=== PATIENT | female | born 1930 | race Caucasian/White ===

== ENCOUNTER 2018-02-17 09:44 | Emergency (ER) | payer MEDICARE, BC ==
[~2018-02-17] VITALS: Ht 170.2 cm; Wt 81.7 kg
[~2018-02-17 09:44] MED LIST: ACET325 PO; ALPR.25 PO; ASPI81CH PO; ATOR40TA PO; Amiodarone HCl200 MG PO; CHOL10002 PO; CIPR500 PO; DIGO.25; DIGO.25 PO; DULO30 PO; ESOM20 PO; ESOMEPRAZOLE MA40 MG PO; FEVER FEW; FURO40 PO; GLIM2 PO; GLIM4 PO; HYDR1TAB94; HYOS0.375T PO; K-Dur10 MEQ; LEVSOD100; LEVSOD100 PO; LISI20 PO; MELO7.5; METO50ER; METO50ER PO; METOPROLOL TART75 MG PO; NABU500 PO; NAPR500 PO; NEBI5 PO; OXYACE5T PO; PANT40; PANT40 PO; PREG100 PO; PROM25 PO; TRAZ150T57 PO; TRAZ50; TRIHYD253A PO
[2018-02-17 10:14] LABS: BASOPHILS ABSOLUTE AUTO 0.02 K/mm3 (0.00-0.23); BASOPHILS PERCENT AUTO 0 % (0-2); EOSINOPHILS ABSOLUTE AUTO 0.11 K/mm3 (0.00-0.68); EOSINOPHILS PERCENT AUTO 1 % (0-6); Hematocrit 34.8 % (33.0-51.0); Hemoglobin 11.2 g/dL (11.5-16.0); IMMATURE GRAN ABSOLUTE AUTO 0.03 K/mm3 (0.00-0.10); IMMATURE GRAN PERCENT AUTO 0 % (0-1); LYMPHOCYTES ABSOLUTE AUTO 2.01 K/mm3 (0.84-5.20); LYMPHOCYTES PERCENT AUTO 19 % (21-46); MONOCYTES ABSOLUTE AUTO 0.73 K/mm3 (0.16-1.47); MONOCYTES PERCENT AUTO 7 % (4-13); Mean Corpuscular HGB 31.3 pg (26.0-34.0); Mean Corpuscular HGB Conc 32.2 g/dL (31.5-36.5); Mean Corpuscular Volume 97 fL (80-100); Mean Platelet Volume 10.1 fL (9.1-12.4); NEUTROPHILS ABSOLUTE AUTO 7.49 K/mm3 (1.96-9.15); NEUTROPHILS PERCENT AUTO 72 % (41-73); Platelet Count 244 K/mm3 (150-400); RDW Coefficient Variation 15.3 % (11.7-14.2); RDW Standard Deviation 54.6 fL (35.1-46.3); Red Blood Cell Count 3.58 M/mm3 (3.80-5.20); White Blood Cell Count 10.39 K/mm3 (4.00-11.30)
[2018-02-17 10:28] LABS: Alanine Aminotransfer (ALT/SGP 14 U/L (12-78); Albumin/Globulin Ratio 0.7 (0.8-1.8); Alk Phos 66 U/L (50-136); Anion Gap 7 mmol/L (6-16); Aspartate Aminotrans (AST/SGOT 13 U/L (12-37); Bilirubin, Total 0.7 mg/dL (0.1-1.0); Blood Urea Nitrogen 13 mg/dL (8-24); CO2, Blood 26 mmol/L (21-32); Calcium, Blood 8.7 mg/dL (8.5-10.1); Chloride, Blood 105 mmol/L (98-108); Creatinine, Blood 1.18 mg/dL (0.40-1.00); Globulin, Blood 4.4 g/dL (2.2-4.0); Glomerular Filtration Rate 46 (60-); Glucose, Blood 180 mg/dL (70-99); Potassium, Blood 4.2 mmol/L (3.5-5.5); Sodium, Blood 138 mmol/L (136-145); Total Protein, Blood 7.4 g/dL (6.4-8.2); Troponin I <0.015 ng/mL (0.000-0.040)
[2018-02-17] MEDS ORDERED: ALPR.25 PO (10:33)
[2018-02-17] MEDS ORDERED: Percocet 2.5-31 EACH PO (10:33)
[2018-02-17 11:37] LABS: Source, Urine Catheter
[2018-02-17 11:40] LABS: Bilirubin, Urine Neg (Neg); Blood, Urine Neg (Neg); Glucose Qualitative, Urine Neg (Neg); Ketones, Urine Neg (Neg); Leukocyte Esterase, Urine 1+ (Neg); Nitrite, Urine Neg (Neg); Protein, Urine Neg (Neg); Specific Gravity, Urine 1.005 (1.003-1.022); Urobilinogen, Urine NORM (Normal)
[2018-02-17 11:51] LABS: Appearance, Urine Clear (Clear); Bacteria Not Seen /hpf; Color, Urine Yellow (P-Yellow); Red Blood Cells, Urine Not Seen /hpf (0-2); Squamous Epithelial Cells Few /hpf (Few); White Blood Cells, Urine 0-2 /hpf (0-5)
[2018-02-17] MEDS ORDERED: Percocet 5-3251 EACH PO (12:04)
[2018-06-16] MEDS ORDERED: ACET325 PO (11:31)
[2018-06-16] MEDS ORDERED: GLIM2 PO (11:32)
[2018-06-16] MEDS ORDERED: Desyrel50 MG PO (12:47)
[2018-06-16] MEDS ORDERED: OXYC5 PO (12:49)
[2018-06-16] MEDS ORDERED: VITAMIN D31000 UNIT PO (12:51)
[2018-06-16] MEDS ORDERED: Coq-10100 MG PO (12:52)
[2018-06-16] MEDS ORDERED: CYAN500 PO (12:52)
[2018-06-18] MEDS ORDERED: PANT40 PO (18:33)
[2018-06-18] MEDS ORDERED: TRAZ150T57 PO (18:34)
[2018-09-20] MEDS ORDERED: Dyazide 37.5-21 EACH PO (16:05)
[2018-09-20] MEDS ORDERED: Voltaren100 GM TOP (16:35)
== END 2018-02-17 12:38 | disposition home or self-care (01) ==
LOC: ER 09:44
PROVIDERS: Emergency Medicine
DX: R55 Syncope and collapse (principal); M19.90 Unspecified osteoarthritis, unspecified site; I48.91 Unspecified atrial fibrillation; I10 Essential (primary) hypertension; E11.9 Type 2 diabetes mellitus without complications; G47.33 Obstructive sleep apnea (adult) (pediatric); F32.9 Major depressive disorder, single episode, unspecified; E78.5 Hyperlipidemia, unspecified; Z87.01 Personal history of pneumonia (recurrent)
CPT/HCPCS: 36415; 71045; 73130; 73630; 80053; 81001; 84484; 85025; 87086; 93005; 93010; 96374; 96375; 99284; J1885; J3010; P9612

== ENCOUNTER 2018-05-02 07:48 | Emergency (ER) | payer MEDICARE, BC ==
[~2018-05-02] VITALS: Ht 167.6 cm; Wt 90.7 kg
[~2018-05-02 07:48] MED LIST changes: +Percocet 2.5-31 EACH PO; +Percocet 5-3251 EACH PO
[2018-05-02 08:38] LABS: BASOPHILS ABSOLUTE AUTO 0.02 K/mm3 (0.00-0.23); BASOPHILS PERCENT AUTO 0 % (0-2); EOSINOPHILS ABSOLUTE AUTO 0.29 K/mm3 (0.00-0.68); EOSINOPHILS PERCENT AUTO 4 % (0-6); Hematocrit 33.5 % (33.0-51.0); IMMATURE GRAN ABSOLUTE AUTO 0.01 K/mm3 (0.00-0.10); IMMATURE GRAN PERCENT AUTO 0 % (0-1); LYMPHOCYTES ABSOLUTE AUTO 1.45 K/mm3 (0.84-5.20); LYMPHOCYTES PERCENT AUTO 20 % (21-46); MONOCYTES ABSOLUTE AUTO 0.48 K/mm3 (0.16-1.47); MONOCYTES PERCENT AUTO 7 % (4-13); Mean Corpuscular HGB 31.5 pg (26.0-34.0); Mean Corpuscular HGB Conc 32.8 g/dL (31.5-36.5); Mean Corpuscular Volume 96 fL (80-100); Mean Platelet Volume 10.3 fL (9.1-12.4); NEUTROPHILS ABSOLUTE AUTO 4.97 K/mm3 (1.96-9.15); NEUTROPHILS PERCENT AUTO 69 % (41-73); Platelet Count 170 K/mm3 (150-400); RDW Coefficient Variation 14.8 % (11.7-14.2); RDW Standard Deviation 51.8 fL (35.1-46.3); Red Blood Cell Count 3.49 M/mm3 (3.80-5.20); White Blood Cell Count 7.22 K/mm3 (4.00-11.30)
[2018-05-02] MEDS ORDERED: METO25ER PO (08:44)
[2018-05-02] MEDS ORDERED: DULO60 PO (08:45)
[2018-05-02 09:06] LABS: Alanine Aminotransfer (ALT/SGP 19 U/L (12-78); Albumin, Blood 3.3 g/dL (3.4-5.0); Albumin/Globulin Ratio 0.8 (0.8-1.8); Alk Phos 68 U/L (50-136); Anion Gap 8 mmol/L (6-16); Aspartate Aminotrans (AST/SGOT 13 U/L (12-37); Bilirubin, Total 0.6 mg/dL (0.1-1.0); Blood Urea Nitrogen 21 mg/dL (8-24); Bun/Creatinine Ratio 21.5 (12.0-20.0); CO2, Blood 26 mmol/L (21-32); Calcium, Blood 8.6 mg/dL (8.5-10.1); Chloride, Blood 108 mmol/L (98-108); Creatinine, Blood 0.98 mg/dL (0.40-1.00); Globulin, Blood 3.9 g/dL (2.2-4.0); Glomerular Filtration Rate 58 (60-); Glucose, Blood 108 mg/dL (70-99); Sodium, Blood 142 mmol/L (136-145); Total Protein, Blood 7.2 g/dL (6.4-8.2)
[2018-05-02 09:24] LABS: Troponin I <0.015 ng/mL (0.000-0.040)
== END 2018-05-02 13:05 | disposition home or self-care (01) ==
LOC: ER 07:48
PROVIDERS: Emergency Medicine
DX: I16.0 Hypertensive urgency (principal); G43.909 Migraine, unspecified, not intractable, without status migrainosus; F41.9 Anxiety disorder, unspecified; I10 Essential (primary) hypertension; Z88.0 Allergy status to penicillin; Z88.5 Allergy status to narcotic agent; Z88.8 Allergy status to other drugs, medicaments and biological substances; Z88.2 Allergy status to sulfonamides; Z79.899 Other long term (current) drug therapy; Z79.82 Long term (current) use of aspirin; Z87.891 Personal history of nicotine dependence
CPT/HCPCS: 36415; 70450; 80053; 84484; 85025; 93005; 93010; 96361; 96374; 96375; 99285; J2060; J7030

== ENCOUNTER 2018-12-14 17:12 | Emergency (ER) | payer MEDICARE, BC ==
[~2018-12-14] VITALS: Ht 167.6 cm; Wt 95.2 kg
[~2018-12-14 17:12] MED LIST changes: +CYAN500 PO; +Coq-10100 MG PO; +DULO60 PO; +Desyrel50 MG PO; +Dyazide 37.5-21 EACH PO; +METO25ER PO; +OXYC5 PO; +VITAMIN D31000 UNIT PO; +Voltaren100 GM TOP
[2018-12-14 18:05] LABS: BASOPHILS ABSOLUTE AUTO 0.03 K/mm3 (0.00-0.23); BASOPHILS PERCENT AUTO 0 % (0-2); EOSINOPHILS PERCENT AUTO 4 % (0-6); Hematocrit 34.7 % (33.0-51.0); Hemoglobin 11.1 g/dL (11.5-16.0); IMMATURE GRAN ABSOLUTE AUTO 0.03 K/mm3 (0.00-0.10); IMMATURE GRAN PERCENT AUTO 0 % (0-1); LYMPHOCYTES ABSOLUTE AUTO 1.84 K/mm3 (0.84-5.20); LYMPHOCYTES PERCENT AUTO 22 % (21-46); MONOCYTES PERCENT AUTO 7 % (4-13); Mean Corpuscular HGB 32.8 pg (26.0-34.0); Mean Corpuscular Volume 103 fL (80-100); Mean Platelet Volume 10.2 fL (9.1-12.4); NEUTROPHILS ABSOLUTE AUTO 5.65 K/mm3 (1.96-9.15); NEUTROPHILS PERCENT AUTO 67 % (41-73); Platelet Count 209 K/mm3 (150-400); RDW Coefficient Variation 13.7 % (11.7-14.2); RDW Standard Deviation 52.3 fL (35.1-46.3); Red Blood Cell Count 3.38 M/mm3 (3.80-5.20); White Blood Cell Count 8.45 K/mm3 (4.00-11.30)
[2018-12-14 18:14] LABS: Alanine Aminotransfer (ALT/SGP 20 U/L (12-78); Albumin, Blood 3.7 g/dL (3.4-5.0); Albumin/Globulin Ratio 0.9 (0.8-1.8); Alk Phos 81 U/L (50-136); Anion Gap 10 mmol/L (6-16); Aspartate Aminotrans (AST/SGOT 8 U/L (12-37); Bilirubin, Total 0.3 mg/dL (0.1-1.0); Blood Urea Nitrogen 26 mg/dL (8-24); Bun/Creatinine Ratio 19.3 (12.0-20.0); CO2, Blood 25 mmol/L (21-32); Calcium, Blood 8.3 mg/dL (8.5-10.1); Chloride, Blood 104 mmol/L (98-108); Creatinine, Blood 1.35 mg/dL (0.40-1.00); Globulin, Blood 4.3 g/dL (2.2-4.0); Glomerular Filtration Rate 40 (60-); Glucose, Blood 160 mg/dL (70-99); Potassium, Blood 4.7 mmol/L (3.5-5.5); Sodium, Blood 139 mmol/L (136-145); Troponin I <0.015 ng/mL (0.000-0.040)
== END 2018-12-15 00:42 | disposition home or self-care (01) ==
LOC: ER 17:12
PROVIDERS: Physician Assistant
DX: I13.0 Hypertensive heart and chronic kidney disease with heart failure and stage 1 through stage 4 chronic kidney disease, or unspecified chronic kidney disease (principal); E11.22 Type 2 diabetes mellitus with diabetic chronic kidney disease; N18.9 Chronic kidney disease, unspecified; I50.9 Heart failure, unspecified; I25.10 Atherosclerotic heart disease of native coronary artery without angina pectoris; R06.00 Dyspnea, unspecified; I48.91 Unspecified atrial fibrillation; M79.10 Myalgia, unspecified site; Z88.0 Allergy status to penicillin; Z88.5 Allergy status to narcotic agent; Z88.6 Allergy status to analgesic agent; Z88.2 Allergy status to sulfonamides; Z79.82 Long term (current) use of aspirin; Z79.899 Other long term (current) drug therapy; Z90.710 Acquired absence of both cervix and uterus; Z98.1 Arthrodesis status; Z87.891 Personal history of nicotine dependence
CPT/HCPCS: 36415; 71046; 71260; 80053; 83880; 84484; 85025; 93005; 93010; 96360; 96361; 99284-25; J7030; Q9967

== ENCOUNTER 2019-05-31 08:28 | Observation (INO) | payer MEDICARE, BC ==
[~2019-05-31] VITALS: Ht 167.6 cm; Wt 99.0 kg
[~2019-05-31 08:28] MED LIST changes: -ASPI81CH PO; -ATOR40TA PO; +Aspir 8181 MG PO; +Lipitor80 MG PO; +TRAZ50 PO
[2019-05-31] MEDS ORDERED: METO25ER PO (09:10)
[2019-05-31] MEDS ORDERED: CBD (09:11)
[2019-05-31 09:12] LABS: BASOPHILS ABSOLUTE AUTO 0.03 K/mm3 (0.00-0.23); BASOPHILS PERCENT AUTO 0 % (0-2); EOSINOPHILS ABSOLUTE AUTO 0.28 K/mm3 (0.00-0.68); EOSINOPHILS PERCENT AUTO 4 % (0-6); IMMATURE GRAN ABSOLUTE AUTO 0.02 K/mm3 (0.00-0.10); IMMATURE GRAN PERCENT AUTO 0 % (0-1); LYMPHOCYTES ABSOLUTE AUTO 1.43 K/mm3 (0.84-5.20); LYMPHOCYTES PERCENT AUTO 18 % (21-46); MONOCYTES ABSOLUTE AUTO 0.47 K/mm3 (0.16-1.47); MONOCYTES PERCENT AUTO 6 % (4-13); Mean Corpuscular HGB 32.8 pg (26.0-34.0); Mean Corpuscular HGB Conc 31.4 g/dL (31.5-36.5); Mean Corpuscular Volume 105 fL (80-100); Mean Platelet Volume 10.3 fL (9.1-12.4); NEUTROPHILS ABSOLUTE AUTO 5.55 K/mm3 (1.96-9.15); NEUTROPHILS PERCENT AUTO 71 % (41-73); Platelet Count 189 K/mm3 (150-400); RDW Coefficient Variation 13.8 % (11.7-14.2); RDW Standard Deviation 52.8 fL (35.1-46.3); Red Blood Cell Count 3.35 M/mm3 (3.80-5.20); White Blood Cell Count 7.78 K/mm3 (4.00-11.30)
[2019-05-31 09:33] LABS: Albumin, Blood 3.6 g/dL (3.4-5.0); Albumin/Globulin Ratio 0.9 (0.8-1.8); Bilirubin, Total 0.4 mg/dL (0.1-1.0); Bun/Creatinine Ratio 22.8 (12.0-20.0); Calcium, Blood 8.9 mg/dL (8.5-10.1); Creatinine, Blood 1.45 mg/dL (0.40-1.00); Globulin, Blood 4.2 g/dL (2.2-4.0); Potassium, Blood 4.9 mmol/L (3.5-5.5); Total Protein, Blood 7.8 g/dL (6.4-8.2)
[2019-05-31 09:39] LABS: Source, Urine Clean Catch
[2019-05-31 09:42] LABS: Bilirubin, Urine Neg (Neg); Blood, Urine Neg (Neg); Glucose Qualitative, Urine Neg (Neg); Ketones, Urine Neg (Neg); Leukocyte Esterase, Urine 3+ (Neg); Nitrite, Urine Neg (Neg); Protein, Urine 1+ (Neg); Specific Gravity, Urine 1.025 (1.003-1.022); Urobilinogen, Urine NORM (Normal); pH, Urine 6.5 (5.0-8.0)
[2019-05-31 10:15] LABS: Appearance, Urine Clear (Clear); Color, Urine Yellow (P-Yellow)
[2019-05-31 10:18] LABS: Red Blood Cells, Urine 0-2 /hpf (0-2); Squamous Epithelial Cells Mod /hpf (Few)
[2019-05-31 10:19] LABS: Bacteria Mod /hpf; Transitional Epithelial Cells Rare /hpf (0-Rare)
--- NOTE | 2019-05-31 14:09 | NUR ---
PT ATE AT 0800 SOME EGGS, TOAST, SPAM, TOMATO JUICE WITH ALL AM MEDS. INCLUDING METOPROLOL AND ELIQUIS. PT STATES TAKES BLOOD THINNER SINCE OPEN HEART SX 2017. PT STATES 06/02 ABD PAIN. DTR (KIKE) AT BEDSIDE.
--- NOTE | 2019-05-31 14:31 | NUR ---
RN NOTIFIED ENGLISH COMPOSITION INSTRUCTOR (NATHAN) THAT PT TOOK ELIQUIS THIS AM. RN VERIFIED WITH PT PHARMACY [facility] PT HAS TAKEN ELIQUIS 5MG PO BID SINCE SEP 2018. PT TOOK THIS AM. RN WAS TOLD SX WILL BE RESCHEDULED UNTIL TOMORROW BECAUSE OF ELIQUIS.
--- NOTE | 2019-05-31 14:37 | NUR ---
PT AND DTR HAVE BEEN NOTIFIED. PT WAS VERY PLEASANT AND UNDERSTANDING. KWABENA WILL BE NURSE ON FLOOR TO 231. TRANSFERING PT TO 231
[2019-05-31] MEDS ORDERED: ELIQUIS5 MG PO (15:29)
--- NOTE | 2019-05-31 17:39 | NUR ---
SUMMARY DENIES ANY NEED FOR PAIN MEDS AT THIS TIME, TOLERATED REGULAR FOOD WELL, NPO AFTER MN FOR SURGERY TOMORROW, DENIES ANY NAUSEA, NO ACUTE CHANGES THIS SHIFT.
--- NOTE | 2019-06-01 07:15 | NUR ---
MD HAD NO ACUTE CHANGES T/O NIGHT; VSS. PT DENIED PAIN/N/V, HAS BEEN NPO SINCE MIDNIGHT. IVF CONT PER ORDERS. PT UP OOB W/FWW+SBA, IS USING CALL LIGHT FOR ASSISTANCE. DR ADDISON IN THIS AM, REP GIVEN TO DAY RN.
--- NOTE | 2019-06-01 13:55 | NUR ---
PT FINISHED TAKING 2L OF GOLYTLY AT THIS TIME, NO BM CURRENTLY
--- NOTE | 2019-06-01 18:35 | NUR ---
SUMMARY: NO ACUTE CHANGE TODAY, VSS, A/O. PT HAS DENIED PAIN AND NAUSEA. SAW DR. WYNNE AND STARTED ON GOLYTELY, PT ABLE TO HAVE SERVERAL LIQ BM'S AND STATES THAT SHE IS FEELING BETTER AND LESS BLOATED THIS EVENING. PT HAS BEEN UP INDEPENDENTLY. NO ACUTE SAFETY CONCERNS AT THIS TIME.
--- NOTE | 2019-06-02 04:07 | NUR ---
SHIFT SUMMARY PT A&O X4 T/O SHIFT. ABD/R ABD/CHRONIC PAIN MANAGED PER EMAR WITH TYLENOL. BTX4; TOLERATED CLEAR DIET WELL; ABD SOFT. DENIES NAUSEA, SOB AND CP/P; RA. CONT. OXIMETRY; O2 SATURATION IN GREATER THAN 90% T/O SHIFT. SCD'S TO BLE'S. PT REPOSITIONED SELF INDEPENDENTLY IN BED T/O SHIFT. CALL LIGHT IN REACH. WCTM UNTIL REPORT TO DAY SHIFT RN.
[2019-06-02 05:13] LABS: BASOPHILS ABSOLUTE AUTO 0.02 K/mm3 (0.00-0.23); BASOPHILS PERCENT AUTO 0 % (0-2); EOSINOPHILS ABSOLUTE AUTO 0.26 K/mm3 (0.00-0.68); EOSINOPHILS PERCENT AUTO 4 % (0-6); Hematocrit 32.4 % (33.0-51.0); Hemoglobin 10.3 g/dL (11.5-16.0); IMMATURE GRAN ABSOLUTE AUTO 0.01 K/mm3 (0.00-0.10); IMMATURE GRAN PERCENT AUTO 0 % (0-1); LYMPHOCYTES ABSOLUTE AUTO 1.33 K/mm3 (0.84-5.20); LYMPHOCYTES PERCENT AUTO 19 % (21-46); MONOCYTES ABSOLUTE AUTO 0.53 K/mm3 (0.16-1.47); MONOCYTES PERCENT AUTO 8 % (4-13); Mean Corpuscular HGB 32.5 pg (26.0-34.0); Mean Corpuscular HGB Conc 31.8 g/dL (31.5-36.5); Mean Platelet Volume 10.4 fL (9.1-12.4); NEUTROPHILS ABSOLUTE AUTO 4.76 K/mm3 (1.96-9.15); NEUTROPHILS PERCENT AUTO 69 % (41-73); Platelet Count 161 K/mm3 (150-400); RDW Coefficient Variation 13.6 % (11.7-14.2); Red Blood Cell Count 3.17 M/mm3 (3.80-5.20); White Blood Cell Count 6.91 K/mm3 (4.00-11.30)
[2019-06-02 05:16] LABS: Mean Corpuscular Volume 102 fL (80-100)
[2019-06-02 05:28] LABS: Bun/Creatinine Ratio 17.6 (12.0-20.0); Calcium, Blood 8.8 mg/dL (8.5-10.1); Creatinine, Blood 1.08 mg/dL (0.40-1.00); Potassium, Blood 4.1 mmol/L (3.5-5.5)
--- NOTE | 2019-06-02 06:13 | NUR ---
DR. ADDISON TO SEE PT AT THIS TIME.
--- NOTE | 2019-06-02 07:59 | NUR ---
PT RESTING WAKES TO VERBAL STIMULI PT STATED LAST BM WAS LIQUID BROWN LAST NIGHT HYPERACTIVE BT'S X4 TENDER TO MID AND UPPER ABD TO TOUCH STILL PT STATED ON EXAM WITH DR ADDISON NO NAUSEA THIS AM
--- NOTE | 2019-06-02 09:50 | NUR ---
dr varner notified dr snyder by pt ok to discharge home to follow up with dr varner pt stated she already has appt in a few weeks ok to cont on her meds as prev sched per dr varner to follow up with dr snyder prn with s/s of gallbladder attack
== END 2019-06-02 10:07 | disposition home or self-care (01) ==
LOC: ER 08:28 → SURS 08:29
PROVIDERS: Physician Assistant; ADMIT Surgery
DX: R10.31 Right lower quadrant pain (principal); I25.9 Chronic ischemic heart disease, unspecified; E78.5 Hyperlipidemia, unspecified; M79.7 Fibromyalgia; G89.4 Chronic pain syndrome; I13.0 Hypertensive heart and chronic kidney disease with heart failure and stage 1 through stage 4 chronic kidney disease, or unspecified chronic kidney disease; E11.22 Type 2 diabetes mellitus with diabetic chronic kidney disease; N18.4 Chronic kidney disease, stage 4 (severe); I50.9 Heart failure, unspecified; E11.51 Type 2 diabetes mellitus with diabetic peripheral angiopathy without gangrene; I73.9 Peripheral vascular disease, unspecified; I25.10 Atherosclerotic heart disease of native coronary artery without angina pectoris; I48.91 Unspecified atrial fibrillation; G47.33 Obstructive sleep apnea (adult) (pediatric); K21.9 Gastro-esophageal reflux disease without esophagitis; F41.9 Anxiety disorder, unspecified; G43.909 Migraine, unspecified, not intractable, without status migrainosus; Z99.89 Dependence on other enabling machines and devices; Z79.899 Other long term (current) drug therapy; Z79.01 Long term (current) use of anticoagulants; Z88.0 Allergy status to penicillin; Z88.8 Allergy status to other drugs, medicaments and biological substances; Z88.5 Allergy status to narcotic agent; Z87.891 Personal history of nicotine dependence
CPT/HCPCS: 36415; 74177; 76705; 80048; 80053; 81001; 82947; 83690; 85025; 86850; 86900; 86901; 87086; 93005; 93010; 94762; 96374; 96375; 96376; 99285-25; A9270; G0378; J0694; J2270; J7030; J7120; Q9967

== ENCOUNTER 2020-07-02 18:12 | Emergency (ER) | payer MEDICARE, BC ==
[~2020-07-02] VITALS: Ht 170.2 cm; Wt 95.2 kg
[~2020-07-02 18:12] MED LIST changes: +CBD; +Cleocin HCl300 MG PO; +ELIQUIS5 MG PO
[2020-07-02] MEDS ORDERED: OLMESARTAN MEDO20 MG PO (18:31)
[2020-07-02] MEDS ORDERED: ACETAMINOPHEN500 MG PO (19:35)
== END 2020-07-02 20:02 | disposition home or self-care (01) ==
LOC: ER 18:12
DX: S06.0X0A Concussion without loss of consciousness, initial encounter (principal); I10 Essential (primary) hypertension; E11.9 Type 2 diabetes mellitus without complications; Z95.1 Presence of aortocoronary bypass graft; Z87.891 Personal history of nicotine dependence; Z88.0 Allergy status to penicillin; Z88.6 Allergy status to analgesic agent; Z88.5 Allergy status to narcotic agent; Z88.8 Allergy status to other drugs, medicaments and biological substances; Z88.2 Allergy status to sulfonamides; Z79.82 Long term (current) use of aspirin; Z79.899 Other long term (current) drug therapy; Z79.01 Long term (current) use of anticoagulants; W01.198A Fall on same level from slipping, tripping and stumbling with subsequent striking against other object, initial encounter; Y93.89 Activity, other specified; Y92.009 Unspecified place in unspecified non-institutional (private) residence as the place of occurrence of the external cause
CPT/HCPCS: 70450; 72125; 99283-25

== ENCOUNTER 2020-09-19 23:05 | Inpatient (IN) | payer MEDICARE, BC, OTHER ==
[~2020-09-19] VITALS: Ht 167.6 cm; Wt 98.6 kg
[~2020-09-19 23:05] MED LIST changes: +ACETAMINOPHEN500 MG PO; +ATORVASTATIN CA40 M1 PO; +Dyazide 37.5/251 EA PO; +OLMESARTAN MEDO20 MG PO
[2020-09-19 23:23] LABS: PCO2 Arterial 44.6 mmHg (35-45); PO2 Arterial 134 mmHg (80-100); pH Blood Arterial 7.36 (7.35-7.45)
[2020-09-19 23:39] LABS: BASOPHILS ABSOLUTE AUTO 0.03 K/mm3 (0.00-0.23); BASOPHILS PERCENT AUTO 0 % (0-2); EOSINOPHILS ABSOLUTE AUTO 0.19 K/mm3 (0.00-0.68); EOSINOPHILS PERCENT AUTO 2 % (0-6); Hemoglobin 11.3 g/dL (11.5-16.0); IMMATURE GRAN ABSOLUTE AUTO 0.04 K/mm3 (0.00-0.10); IMMATURE GRAN PERCENT AUTO 0 % (0-1); LYMPHOCYTES ABSOLUTE AUTO 1.58 K/mm3 (0.84-5.20); LYMPHOCYTES PERCENT AUTO 13 % (21-46); MONOCYTES ABSOLUTE AUTO 0.54 K/mm3 (0.16-1.47); MONOCYTES PERCENT AUTO 4 % (4-13); Mean Corpuscular HGB 32.5 pg (26.0-34.0); Mean Corpuscular HGB Conc 31.4 g/dL (31.5-36.5); Mean Corpuscular Volume 103 fL (80-100); Mean Platelet Volume 10.3 fL (9.1-12.4); NEUTROPHILS ABSOLUTE AUTO 9.97 K/mm3 (1.96-9.15); NEUTROPHILS PERCENT AUTO 81 % (41-73); Platelet Count 170 K/mm3 (150-400); RDW Coefficient Variation 13.2 % (11.7-14.2); RDW Standard Deviation 50.5 fL (35.1-46.3); Red Blood Cell Count 3.48 M/mm3 (3.80-5.20); White Blood Cell Count 12.35 K/mm3 (4.00-11.30)
[2020-09-20 00:08] LABS: Alanine Aminotransfer (ALT/SGP 18 U/L (12-78); Albumin, Blood 3.6 g/dL (3.4-5.0); Albumin/Globulin Ratio 0.8 (0.8-1.8); Alk Phos 64 U/L (50-136); Anion Gap 6 mmol/L (6-16); Aspartate Aminotrans (AST/SGOT 15 U/L (12-37); Bilirubin, Total 0.4 mg/dL (0.1-1.0); Blood Urea Nitrogen 25 mg/dL (8-24); Bun/Creatinine Ratio 19.4 (12.0-20.0); CO2, Blood 26 mmol/L (21-32); Calcium, Blood 8.8 mg/dL (8.5-10.1); Chloride, Blood 107 mmol/L (98-108); Creatinine, Blood 1.29 mg/dL (0.40-1.00); Globulin, Blood 4.5 g/dL (2.2-4.0); Glomerular Filtration Rate 41 (60-); Glucose, Blood 214 mg/dL (70-99); Potassium, Blood 4.5 mmol/L (3.5-5.5); Sodium, Blood 139 mmol/L (136-145); Total Protein, Blood 8.1 g/dL (6.4-8.2); Troponin I <0.015 ng/mL (0.000-0.040)
--- NOTE | 2020-09-20 02:20 | NUR ---
0115 PT ADMITTED TO PCU 3 PER CART FROM ER; REPORT RECEIVED FROM ASYA KIRKPATRICK IN ER; ASSISTED INTO BED VIA SLIDER SHEET X 4 ASSIST; ALERT AND ORIENTED X 4; BIPAP APPLIED BY RESPIRATORY THERAPY; SITTING HIGH FOWLERS POSITION; DENIES PAIN OR NAUSEA.
--- NOTE | 2020-09-20 03:42 | NUR ---
SHIFT SUMMARY: 89 Y/O OBESE FEMALE RESTED COMFORTABLY ALL SHIFT WHILE BIPAP WITH O2 SAT 95%; DENIES PAIN OR NAUSEA; ALERT AND ORIENED X 4; TELEMETRY REFLECTS NSR PER SARAH--NETWORK CABLER; BED ALARM APPLIED FOR SAFETY, BED LOW POSITION WITH CALL LIGHT AT SIDE.
[2020-09-20 08:04] LABS: BASOPHILS ABSOLUTE AUTO 0.01 K/mm3 (0.00-0.23); BASOPHILS PERCENT AUTO 0 % (0-2); EOSINOPHILS PERCENT AUTO 0 % (0-6); Hematocrit 30.1 % (33.0-51.0); Hemoglobin 9.4 g/dL (11.5-16.0); IMMATURE GRAN ABSOLUTE AUTO 0.02 K/mm3 (0.00-0.10); IMMATURE GRAN PERCENT AUTO 0 % (0-1); LYMPHOCYTES ABSOLUTE AUTO 0.89 K/mm3 (0.84-5.20); LYMPHOCYTES PERCENT AUTO 9 % (21-46); MONOCYTES ABSOLUTE AUTO 0.59 K/mm3 (0.16-1.47); MONOCYTES PERCENT AUTO 6 % (4-13); Mean Corpuscular HGB 32.4 pg (26.0-34.0); Mean Corpuscular HGB Conc 31.2 g/dL (31.5-36.5); Mean Corpuscular Volume 104 fL (80-100); Mean Platelet Volume 10.7 fL (9.1-12.4); NEUTROPHILS ABSOLUTE AUTO 7.99 K/mm3 (1.96-9.15); NEUTROPHILS PERCENT AUTO 84 % (41-73); Platelet Count 151 K/mm3 (150-400); RDW Coefficient Variation 13.4 % (11.7-14.2); RDW Standard Deviation 51.7 fL (35.1-46.3)
[2020-09-20 08:30] LABS: Albumin, Blood 3.1 g/dL (3.4-5.0); Albumin/Globulin Ratio 0.8 (0.8-1.8); Bilirubin, Total 0.5 mg/dL (0.1-1.0); Bun/Creatinine Ratio 19.5 (12.0-20.0); Calcium, Blood 8.2 mg/dL (8.5-10.1); Creatinine, Blood 1.54 mg/dL (0.40-1.00); Potassium, Blood 4.9 mmol/L (3.5-5.5); Total Protein, Blood 7.1 g/dL (6.4-8.2)
[2020-09-20 08:40] LABS: Troponin I 0.201 ng/mL (0.000-0.040)
[2020-09-20 16:39] LABS: Troponin I 0.078 ng/mL (0.000-0.040)
--- NOTE | 2020-09-20 17:35 | NUR ---
SHIFT SUMMARY; A/A/OX4 DURING SHIFT. SBA TO RESTROOM WITH WALKER SEVERAL TIMES DURING SHIFT. BIPAP REMOVED AT 0730, PLACED ON 2L O2 TITRATED DOWN TO 1L AT THIS TIME. DYSPNEA WITH EXERTION. INSULIN COVERAGE NEEDED DURING SHIFT, LASIX STARTED TODAY. L/S CLEAR, SATS 95%, VSS. WILL CONTINUE TO MONITOR AND TREAT UNTIL CHANGE OF SHIFT.
--- NOTE | 2020-09-21 03:10 | NUR ---
SHIFT SUMMARY PT A/OX4 WITH VSS. NO ACUTE CHANGES THIS SHIFT. PT APPEARS TO HAVE SLEPT WELL T/O NIGHT; AWAKENS EASILY. BIPAP IN PLACE WHILE SLEEPING, NC AT 1L WHILE AWAKE. AMBULATES TO BATHROOM WITH SBA/FWW AND MIN ASSISTANCE. PT DENIES CP OR PRESSURE. PT APPEARS TO BE RESTING COMFORTABLY AT THIS TIME WITH BIPAP MASK IN PLACE; NO SIGNS OF DYSPNEA OR SOB. SPO2 AT 95%. HAS CALL LIGHT IN REACH WITH BED IN LOWEST POSITION. WILL CONTINUE TO MONITOR PATIENT AND GIVE SHIFT CHANGE REPORT TO ONCOMING RN.
--- NOTE | 2020-09-21 07:21 | NUR ---
SHIFT CHANGE REPORT GIVEN TO VIOLETA SKY
[2020-09-21 08:31] LABS: BASOPHILS ABSOLUTE AUTO 0.03 K/mm3 (0.00-0.23); BASOPHILS PERCENT AUTO 0 % (0-2); EOSINOPHILS ABSOLUTE AUTO 0.25 K/mm3 (0.00-0.68); EOSINOPHILS PERCENT AUTO 3 % (0-6); Hemoglobin 11.2 g/dL (11.5-16.0); IMMATURE GRAN ABSOLUTE AUTO 0.02 K/mm3 (0.00-0.10); IMMATURE GRAN PERCENT AUTO 0 % (0-1); LYMPHOCYTES ABSOLUTE AUTO 1.32 K/mm3 (0.84-5.20); LYMPHOCYTES PERCENT AUTO 16 % (21-46); MONOCYTES ABSOLUTE AUTO 0.54 K/mm3 (0.16-1.47); MONOCYTES PERCENT AUTO 7 % (4-13); Mean Corpuscular HGB 32.5 pg (26.0-34.0); Mean Corpuscular HGB Conc 31.1 g/dL (31.5-36.5); Mean Corpuscular Volume 104 fL (80-100); Mean Platelet Volume 10.7 fL (9.1-12.4); NEUTROPHILS ABSOLUTE AUTO 6.19 K/mm3 (1.96-9.15); NEUTROPHILS PERCENT AUTO 74 % (41-73); Platelet Count 168 K/mm3 (150-400); RDW Coefficient Variation 13.5 % (11.7-14.2); RDW Standard Deviation 51.4 fL (35.1-46.3); Red Blood Cell Count 3.45 M/mm3 (3.80-5.20); White Blood Cell Count 8.35 K/mm3 (4.00-11.30)
[2020-09-21 08:50] LABS: Albumin, Blood 3.2 g/dL (3.4-5.0); Anion Gap 5 mmol/L (6-16); Blood Urea Nitrogen 35 mg/dL (8-24); Bun/Creatinine Ratio 20.8 (12.0-20.0); CO2, Blood 30 mmol/L (21-32); Calcium, Blood 9.1 mg/dL (8.5-10.1); Chloride, Blood 106 mmol/L (98-108); Creatinine, Blood 1.68 mg/dL (0.40-1.00); Glomerular Filtration Rate 31 (60-); Glucose, Blood 164 mg/dL (70-99); Phosphorus, Blood 3.1 mg/dL (2.5-4.9); Potassium, Blood 4.6 mmol/L (3.5-5.5); Sodium, Blood 141 mmol/L (136-145)
[2020-09-21] MEDS ORDERED: FURO20 PO (13:19)
[2020-09-21] MEDS ORDERED: AMLO5 PO (13:20)
--- NOTE | 2020-09-21 14:15 | NUR ---
PT DISCHARGED TO HOME TODAY WITH DISCHARGED ORDERS. PT DID HOME O2 EVAL PRIOR TO DISCHARGE DOES NOT NEED O2 SUPPLEMENTATION AT THIS TIME. ALL DISCHARGE INSTRUCTIONS AND MEDICATIONS DISCLOSED WITH PT, AT BEDSIDE WELL. NO OTHER ISSUES/CONCERNS AT THIS TIME. PT ACCOMPANIED VIA WHEELCHAIR FOR TRANSPORT, PROVIDED TRANSPORTATION FOR THE PT, ALL BELONGINGS SENT WITH PT.
== END 2020-09-21 14:08 | disposition home or self-care (01) | DRG 291 ==
LOC: ER 23:05 → PCU 23:06 → ER 23:50 → PCU 09-20 01:18
PROVIDERS: Emergency Medicine; Student in an Organized Health Care Education/Training Program; ADMIT Internal Medicine
PROC: 5A09357 Assistance with Respiratory Ventilation, Less than 24 Consecutive Hours, Continuous Positive Airway Pressure (ICD-10-PCS; principal; 2020-09-19)
DX: I13.0 Hypertensive heart and chronic kidney disease with heart failure and stage 1 through stage 4 chronic kidney disease, or unspecified chronic kidney disease (principal); I50.33 Acute on chronic diastolic (congestive) heart failure; J18.9 Pneumonia, unspecified organism; J96.01 Acute respiratory failure with hypoxia; I16.1 Hypertensive emergency; N17.9 Acute kidney failure, unspecified; I48.91 Unspecified atrial fibrillation; E78.5 Hyperlipidemia, unspecified; F32.9 Major depressive disorder, single episode, unspecified; E03.9 Hypothyroidism, unspecified; E11.22 Type 2 diabetes mellitus with diabetic chronic kidney disease; G47.33 Obstructive sleep apnea (adult) (pediatric); K21.9 Gastro-esophageal reflux disease without esophagitis; E11.65 Type 2 diabetes mellitus with hyperglycemia; N18.30 Chronic kidney disease, stage 3 unspecified; I25.10 Atherosclerotic heart disease of native coronary artery without angina pectoris; G43.909 Migraine, unspecified, not intractable, without status migrainosus; I65.29 Occlusion and stenosis of unspecified carotid artery; I25.2 Old myocardial infarction; Z95.1 Presence of aortocoronary bypass graft; Z88.5 Allergy status to narcotic agent; Z88.0 Allergy status to penicillin; Z88.2 Allergy status to sulfonamides; Z88.8 Allergy status to other drugs, medicaments and biological substances; Z79.01 Long term (current) use of anticoagulants; Z79.82 Long term (current) use of aspirin; Z79.84 Long term (current) use of oral hypoglycemic drugs; Z87.891 Personal history of nicotine dependence
CPT/HCPCS: 36415; 36600; 71045; 80053; 80069; 82550; 82803; 82947; 83880; 84484; 85025; 93005; 93010; 94644; 94660; 94761; 94762; 96365; 98960; 99285-25; A9270; A9270-GY; J1940; J1956

== ENCOUNTER 2020-10-26 16:53 | Inpatient (IN) | payer MEDICARE, BC ==
[~2020-10-26] VITALS: Ht 167.6 cm; Wt 93.7 kg
[~2020-10-26 16:53] MED LIST changes: +AMLO5 PO; -ATORVASTATIN CA40 M1 PO; +ATORVASTATIN CA80 M1 PO; +FURO20 PO
[2020-10-26 17:38] LABS: BASOPHILS ABSOLUTE AUTO 0.02 K/mm3 (0.00-0.23); BASOPHILS PERCENT AUTO 0 % (0-2); EOSINOPHILS ABSOLUTE AUTO 0.09 K/mm3 (0.00-0.68); EOSINOPHILS PERCENT AUTO 1 % (0-6); Hematocrit 31.6 % (33.0-51.0); IMMATURE GRAN ABSOLUTE AUTO 0.03 K/mm3 (0.00-0.10); IMMATURE GRAN PERCENT AUTO 0 % (0-1); LYMPHOCYTES ABSOLUTE AUTO 0.87 K/mm3 (0.84-5.20); LYMPHOCYTES PERCENT AUTO 10 % (21-46); MONOCYTES ABSOLUTE AUTO 0.55 K/mm3 (0.16-1.47); MONOCYTES PERCENT AUTO 7 % (4-13); Mean Corpuscular HGB 32.6 pg (26.0-34.0); Mean Corpuscular HGB Conc 31.6 g/dL (31.5-36.5); Mean Corpuscular Volume 103 fL (80-100); Mean Platelet Volume 10.4 fL (9.1-12.4); NEUTROPHILS ABSOLUTE AUTO 6.96 K/mm3 (1.96-9.15); NEUTROPHILS PERCENT AUTO 82 % (41-73); Platelet Count 176 K/mm3 (150-400); RDW Standard Deviation 53.1 fL (35.1-46.3); Red Blood Cell Count 3.07 M/mm3 (3.80-5.20); White Blood Cell Count 8.52 K/mm3 (4.00-11.30)
[2020-10-26 18:02] LABS: Alanine Aminotransfer (ALT/SGP 29 U/L (12-78); Albumin, Blood 3.6 g/dL (3.4-5.0); Albumin/Globulin Ratio 0.8 (0.8-1.8); Alk Phos 73 U/L (50-136); Anion Gap 8 mmol/L (6-16); Aspartate Aminotrans (AST/SGOT 16 U/L (12-37); Bilirubin, Total 1.4 mg/dL (0.1-1.0); Blood Urea Nitrogen 21 mg/dL (8-24); Bun/Creatinine Ratio 20.2 (12.0-20.0); CO2, Blood 23 mmol/L (21-32); Calcium, Blood 9.2 mg/dL (8.5-10.1); Chloride, Blood 107 mmol/L (98-108); Creatinine, Blood 1.04 mg/dL (0.40-1.00); Globulin, Blood 4.4 g/dL (2.2-4.0); Glomerular Filtration Rate 53 (60-); Glucose, Blood 209 mg/dL (70-99); Potassium, Blood 4.1 mmol/L (3.5-5.5); Sodium, Blood 138 mmol/L (136-145); Troponin I <0.015 ng/mL (0.000-0.040)
[2020-10-26] MEDS ORDERED: SYNTHROID100 MC4 PO (20:21)
[2020-10-26] MEDS ORDERED: TRAZ150T57 PO (20:21)
[2020-10-26] MEDS ORDERED: GLIMEPIRIDE2 MG PO (20:22)
[2020-10-26] MEDS ORDERED: METO50ER PO (20:22)
[2020-10-26] MEDS ORDERED: LISI20 PO (20:23)
[2020-10-26 22:00] LABS: Influenza A, PCR Negative (NEGATIVE); Influenza B, PCR Negative (NEGATIVE); Resp Syncytial Virus, PCR Negative (NEGATIVE); SARS-Cov-2 (COVID-19) PCR, MMC Negative (NEGATIVE)
--- NOTE | 2020-10-27 03:46 | NUR ---
SUMMARY PT ARRIVED TO FLOOR IN NO DISTRESS. PT RECIEVED NIGHT MEDS AND HAS BEEN SLEEPING WELL. PT IS CURRENTLY SLEEPING AND BREATHING EASY ON CPAP. CALL LIGHT IN REACH.
[2020-10-27 05:21] LABS: BASOPHILS ABSOLUTE AUTO 0.03 K/mm3 (0.00-0.23); BASOPHILS PERCENT AUTO 0 % (0-2); EOSINOPHILS ABSOLUTE AUTO 0.08 K/mm3 (0.00-0.68); EOSINOPHILS PERCENT AUTO 1 % (0-6); Hematocrit 31.8 % (33.0-51.0); Hemoglobin 10.1 g/dL (11.5-16.0); IMMATURE GRAN ABSOLUTE AUTO 0.03 K/mm3 (0.00-0.10); IMMATURE GRAN PERCENT AUTO 0 % (0-1); LYMPHOCYTES ABSOLUTE AUTO 1.15 K/mm3 (0.84-5.20); LYMPHOCYTES PERCENT AUTO 11 % (21-46); MONOCYTES ABSOLUTE AUTO 0.74 K/mm3 (0.16-1.47); MONOCYTES PERCENT AUTO 7 % (4-13); Mean Corpuscular HGB 32.6 pg (26.0-34.0); Mean Corpuscular HGB Conc 31.8 g/dL (31.5-36.5); Mean Corpuscular Volume 103 fL (80-100); Mean Platelet Volume 10.4 fL (9.1-12.4); NEUTROPHILS ABSOLUTE AUTO 8.86 K/mm3 (1.96-9.15); NEUTROPHILS PERCENT AUTO 81 % (41-73); Platelet Count 176 K/mm3 (150-400); RDW Coefficient Variation 14.1 % (11.7-14.2); RDW Standard Deviation 53.4 fL (35.1-46.3); White Blood Cell Count 10.89 K/mm3 (4.00-11.30)
[2020-10-27 05:55] LABS: Alanine Aminotransfer (ALT/SGP 26 U/L (12-78); Albumin, Blood 3.5 g/dL (3.4-5.0); Albumin/Globulin Ratio 0.8 (0.8-1.8); Alk Phos 76 U/L (50-136); Anion Gap 6 mmol/L (6-16); Aspartate Aminotrans (AST/SGOT 13 U/L (12-37); Bilirubin, Total 1.6 mg/dL (0.1-1.0); Blood Urea Nitrogen 17 mg/dL (8-24); Bun/Creatinine Ratio 17.2 (12.0-20.0); CO2, Blood 27 mmol/L (21-32); Calcium, Blood 9.2 mg/dL (8.5-10.1); Chloride, Blood 107 mmol/L (98-108); Creatinine, Blood 0.99 mg/dL (0.40-1.00); Globulin, Blood 4.3 g/dL (2.2-4.0); Glomerular Filtration Rate 56 (60-); Glucose, Blood 155 mg/dL (70-99); Magnesium, Blood 1.9 mg/dL (1.6-2.4); Potassium, Blood 3.8 mmol/L (3.5-5.5); Sodium, Blood 140 mmol/L (136-145); Total Protein, Blood 7.8 g/dL (6.4-8.2); Troponin I <0.015 ng/mL (0.000-0.040)
[2020-10-27 10:14] LABS: PCO2 Arterial 37.5 mmHg (35-45); pH Blood Arterial 7.45 (7.35-7.45)
[2020-10-27 10:47] LABS: C-REACTIVE PROTEIN, EXT RANGE 12.2 mg/dL (0.000-0.300)
[2020-10-27 13:20] LABS: Test Name COVID19 AG
[2020-10-27 13:21] LABS: Result Negative
--- NOTE | 2020-10-27 18:43 | NUR ---
SHIFT SUMMARY: RULED OUT FOR COVID 19, TAKEN OUT OF ISOLATION. NO EVENTS ON TELEMETRY, AFIB WITH HR 89-120 DEPENDING ON ACTIVITY. ON O2 @ 2 L/MIN NC, VERY SOMMERS. UP TO BSC WITH SBA. STARTED ON ROCEPHIN AND ZITHROMAX. MODERATE APPETITE, DENIES N/V/D. DENIES PAIN. MISSED 1300 LASIX DOSE D/T LOSS OF IV ACCESS. HAD VISIT FROM S.O. TODAY.
--- NOTE | 2020-10-28 04:30 | NUR ---
SHIFT SUMMARY PT AOX4; CALLS APPROPRIATELY. PT USES CPAP AT NIGHT; OTHERWISE USES O2 VIA NC OF 2L. PT RECEIVED MELATONIN AT BEDTIME. NO OTHER C.O AND NO APPARENT DISTRESS. BED IS IN THE LOWEST POSITION AND CALL LIGHT WITHIN REACH.
[2020-10-28 05:26] LABS: BASOPHILS ABSOLUTE AUTO 0.03 K/mm3 (0.00-0.23); BASOPHILS PERCENT AUTO 0 % (0-2); EOSINOPHILS PERCENT AUTO 4 % (0-6); Hematocrit 31.1 % (33.0-51.0); Hemoglobin 9.8 g/dL (11.5-16.0); IMMATURE GRAN ABSOLUTE AUTO 0.02 K/mm3 (0.00-0.10); IMMATURE GRAN PERCENT AUTO 0 % (0-1); LYMPHOCYTES ABSOLUTE AUTO 1.13 K/mm3 (0.84-5.20); LYMPHOCYTES PERCENT AUTO 15 % (21-46); MONOCYTES ABSOLUTE AUTO 0.57 K/mm3 (0.16-1.47); MONOCYTES PERCENT AUTO 7 % (4-13); Mean Corpuscular HGB 32.2 pg (26.0-34.0); Mean Corpuscular HGB Conc 31.5 g/dL (31.5-36.5); Mean Corpuscular Volume 102 fL (80-100); Mean Platelet Volume 10.6 fL (9.1-12.4); NEUTROPHILS ABSOLUTE AUTO 5.77 K/mm3 (1.96-9.15); NEUTROPHILS PERCENT AUTO 74 % (41-73); Platelet Count 187 K/mm3 (150-400); RDW Coefficient Variation 13.9 % (11.7-14.2); RDW Standard Deviation 52.4 fL (35.1-46.3); Red Blood Cell Count 3.04 M/mm3 (3.80-5.20); White Blood Cell Count 7.82 K/mm3 (4.00-11.30)
[2020-10-28 05:55] LABS: Bun/Creatinine Ratio 17.7 (12.0-20.0); Creatinine, Blood 1.3 mg/dL (0.40-1.00)
[2020-10-28 17:10] LABS: SARS COV-2 IGG AB Negative (Negative); SARS COV-2 IGM AB Negative (Negative)
--- NOTE | 2020-10-28 17:40 | NUR ---
SHIFT SUMMARY NO ACUTE CHANGES T/O SHIFT, A&Ox4, CALM AND COOPERATIVE. PT REMAINED ON 2 L/MIN O2 T/O SHIFT, RA IS HER BASELINE @ HOME. HOME O2 WILL BE REQUIRED BEFORE DISCHARGE. PT REPORTS SOB WHEN GETTING UP TO THE RESTROOM OR WITH ANY EXERTION, AND WHEN SHE TRIES TO SAY LONG SENTENCES. PT TREATED FOR PAIN ONCE THIS SHIFT AND WAS TREATED PER EMAR. LAST TELE REPORT WAS AFIB @ 100. BP HAS BEEN STABLE AND WNL T/O SHIFT. PT/OT ORDERED FOR PT TODAY PER ISTRATE. PT IS CURRENTLY LYING IN BED VISITING . BED IS IN LOWEST POSITION WITH CALL LIGHT WITHIN REACH.
--- NOTE | 2020-10-28 19:29 | NUR ---
AWAKE. WATCHING TV. AFFECT CHEERFUL. CALL LIGHT IN REACH
--- NOTE | 2020-10-29 05:16 | NUR ---
SHIFT SUMMARY HAS BEEN RESTING QUIETLY WITH HOB ELEVATED ABOUT 45 DEGREES WITH FEW INTERRUPTIONS. AWAKE A FEW TIMES TO VOID IN BEDSIDE COMMODE. O2 SATS MAINTAINED. CALL LIGHT IN REACH
[2020-10-29 05:43] LABS: BASOPHILS ABSOLUTE AUTO 0.03 K/mm3 (0.00-0.23); BASOPHILS PERCENT AUTO 1 % (0-2); EOSINOPHILS ABSOLUTE AUTO 0.26 K/mm3 (0.00-0.68); EOSINOPHILS PERCENT AUTO 4 % (0-6); Hematocrit 28.5 % (33.0-51.0); IMMATURE GRAN ABSOLUTE AUTO 0.01 K/mm3 (0.00-0.10); IMMATURE GRAN PERCENT AUTO 0 % (0-1); LYMPHOCYTES ABSOLUTE AUTO 1.21 K/mm3 (0.84-5.20); LYMPHOCYTES PERCENT AUTO 20 % (21-46); MONOCYTES ABSOLUTE AUTO 0.47 K/mm3 (0.16-1.47); MONOCYTES PERCENT AUTO 8 % (4-13); Mean Corpuscular HGB Conc 31.6 g/dL (31.5-36.5); Mean Corpuscular Volume 101 fL (80-100); Mean Platelet Volume 10.7 fL (9.1-12.4); NEUTROPHILS ABSOLUTE AUTO 4.04 K/mm3 (1.96-9.15); NEUTROPHILS PERCENT AUTO 67 % (41-73); Platelet Count 195 K/mm3 (150-400); RDW Coefficient Variation 13.6 % (11.7-14.2); Red Blood Cell Count 2.81 M/mm3 (3.80-5.20); White Blood Cell Count 6.02 K/mm3 (4.00-11.30)
[2020-10-29 06:07] LABS: Bun/Creatinine Ratio 21.8 (12.0-20.0); Creatinine, Blood 1.33 mg/dL (0.40-1.00); Potassium, Blood 4.3 mmol/L (3.5-5.5)
[2020-10-29] MEDS ORDERED: ACET325 PO (11:16)
[2020-10-29] MEDS ORDERED: ALBU90OI INH (11:16)
[2020-10-29] MEDS ORDERED: CEFP200 PO (11:17)
[2020-10-29] MEDS ORDERED: AZIT500 PO (11:17)
[2020-10-29] MEDS ORDERED: GILTUSS HONEY118 ML PO (11:18)
[2020-10-29] MEDS ORDERED: FAMO20 PO (11:18)
[2020-10-29] MEDS ORDERED: FURO20 PO (11:18)
[2020-10-29] MEDS ORDERED: VISBIOME PROBIOTIC PO (11:19)
[2020-10-29] MEDS ORDERED: Lisinopril2.5 MG PO (11:19)
[2020-10-29] MEDS ORDERED: MELA3 PO (11:19)
[2020-10-29] MEDS ORDERED: ONDA4ODT MM (11:19)
--- NOTE | 2020-10-29 11:42 | NUR ---
DISCUSSED WITH ISTRATE PT WILL BE DC TOMORROW. PT STILL FEELS WEAK AND SOB. HOME 2 EVAL TO BE COMPLETED TODAY OR TOMORROW.
--- NOTE | 2020-10-29 17:37 | NUR ---
SHIFT SUMMARY NO ACUTE CHANGES T/O SHFIT, A&Ox4, CALM AND COOPERATIVE c CARE. GURPREET STATED PT COULD BE DISCHARGED TODAY, HOWEVER PT STATED SHE DOES NOT FEEL TOO MUCH BETTER AND WOULD LIKE ANOTHER DAY. GURPREET ALSO ORDERED A HOME O2 EVALUATION DUE TO PT BECOMING SOB UPON EXERTION. SHE IS CURRENTLY ON 2 L/MIN O2 VIA NC. PT STATED THAT IF SHE DOES NOT QUALIFY FOR HOME O2 THAT SHE IS WILLING TO PAY OUT OF POCKET HERSELF. PT IS CURRENTLY RESTING IN BED WITH CALL LIGHT WITHIN REACH.
--- NOTE | 2020-10-29 19:31 | NUR ---
AWAKE. ASSISTED UP TO BEDSIDE COMMODE. HAD LARGE LOOSE STOOL. ABLE TO STAND UP AND AMBULATE TO SINK TO WASH HANDS. ASSISTED BACK INTO BED. CHEERFUL AFFECT. O2 AT 2L/NC WITH CONT PULSE OX IN THE 90'S SATS. CALL LIGHT IN REACH. HOB UP OVER 45 DEGREES.
--- NOTE | 2020-10-30 03:52 | NUR ---
SHIFT SUMMARY HAS BEEN RESTING QUIETLY MOST OF SHIFT WITH THE EXCEPTIONS OF GETTING UP TO GO TO THE RESTROOM A FEW TIMES. INTERMITTENT JOKING WITH NURSE. CONTINUOUS PULSE OX IN USE, SATS IN THE 90'S WHEN SLEEPING. CALL LIGHT IN REACH
[2020-10-30 05:50] LABS: BASOPHILS ABSOLUTE AUTO 0.03 K/mm3 (0.00-0.23); BASOPHILS PERCENT AUTO 0 % (0-2); EOSINOPHILS ABSOLUTE AUTO 0.31 K/mm3 (0.00-0.68); EOSINOPHILS PERCENT AUTO 5 % (0-6); Hematocrit 31.1 % (33.0-51.0); IMMATURE GRAN ABSOLUTE AUTO 0.06 K/mm3 (0.00-0.10); IMMATURE GRAN PERCENT AUTO 1 % (0-1); LYMPHOCYTES ABSOLUTE AUTO 1.34 K/mm3 (0.84-5.20); LYMPHOCYTES PERCENT AUTO 20 % (21-46); MONOCYTES ABSOLUTE AUTO 0.45 K/mm3 (0.16-1.47); MONOCYTES PERCENT AUTO 7 % (4-13); Mean Corpuscular HGB 32.3 pg (26.0-34.0); Mean Corpuscular HGB Conc 32.2 g/dL (31.5-36.5); Mean Corpuscular Volume 100 fL (80-100); Mean Platelet Volume 10.4 fL (9.1-12.4); NEUTROPHILS ABSOLUTE AUTO 4.61 K/mm3 (1.96-9.15); NEUTROPHILS PERCENT AUTO 68 % (41-73); Platelet Count 200 K/mm3 (150-400); RDW Coefficient Variation 13.4 % (11.7-14.2); RDW Standard Deviation 49.5 fL (35.1-46.3)
[2020-10-30 05:59] LABS: Bun/Creatinine Ratio 21.1 (12.0-20.0); Calcium, Blood 8.6 mg/dL (8.5-10.1); Creatinine, Blood 1.23 mg/dL (0.40-1.00); Potassium, Blood 4.1 mmol/L (3.5-5.5)
[2020-10-30] MEDS ORDERED: ASCO500 PO (13:33)
[2020-10-30] MEDS ORDERED: CEFP200 PO (13:34)
[2020-10-30] MEDS ORDERED: CYAN500 PO (13:34)
[2020-10-30] MEDS ORDERED: AZIT500 PO (13:34)
[2020-10-30] MEDS ORDERED: ROBITUSSIN PO (13:36)
[2020-10-30] MEDS ORDERED: FERSU300 PO (13:36)
[2020-10-30] MEDS ORDERED: FURO20 PO (13:37)
[2020-10-30] MEDS ORDERED: ONDA4ODT MM (13:38)
--- NOTE | 2020-10-30 15:11 | NUR ---
PATIENT DISCHARGE: PATIENT DISCHARGED TO HOME / XFR TO HOME HEALTH THIS SHIFT. MEDICATION RECONCILIATION COMPLETED; MED LIST FAXED TO [facility]. DISCHARGE EDUCATION COMPLETED WITH PATIENT AND S/O. PATIENT TRANSPORTED TO EXIT BY [facility] STA[facility] WITH WHEELCHAIR AT 1505. PATIENT DEPARTED [facility] VIA PRIVATE AUTO.
== END 2020-10-30 15:11 | disposition home health service (06) | DRG 291 ==
LOC: ER 16:53 → MEDS 23:26 → ENPENDDIS 10-29 11:15 → EDPENDDIS 10-29 11:15 → MEDS 10-29 22:15
PROVIDERS: Emergency Medicine; ADMIT Family Medicine
DX: I13.0 Hypertensive heart and chronic kidney disease with heart failure and stage 1 through stage 4 chronic kidney disease, or unspecified chronic kidney disease (principal); I50.33 Acute on chronic diastolic (congestive) heart failure; J18.9 Pneumonia, unspecified organism; J96.01 Acute respiratory failure with hypoxia; N17.9 Acute kidney failure, unspecified; Z20.828 Contact with and (suspected) exposure to other viral communicable diseases; N18.30 Chronic kidney disease, stage 3 unspecified; E11.22 Type 2 diabetes mellitus with diabetic chronic kidney disease; I42.9 Cardiomyopathy, unspecified; E03.9 Hypothyroidism, unspecified; E78.5 Hyperlipidemia, unspecified; F32.9 Major depressive disorder, single episode, unspecified; G47.33 Obstructive sleep apnea (adult) (pediatric); I25.10 Atherosclerotic heart disease of native coronary artery without angina pectoris; I48.91 Unspecified atrial fibrillation; K21.9 Gastro-esophageal reflux disease without esophagitis; Z87.891 Personal history of nicotine dependence; Z95.1 Presence of aortocoronary bypass graft; Z79.01 Long term (current) use of anticoagulants; D64.9 Anemia, unspecified; Z79.4 Long term (current) use of insulin
CPT/HCPCS: 0241U; 36415; 36600; 71045; 71046; 80048; 80053; 82728; 82803; 82947; 83605; 83615; 83735; 83880; 84145; 84484; 85025; 85379; 86140; 86769; 93005; 93010; 94660; 94761; 94762; 96374; 97116; 97162; 97530; 99285-25; A9270; A9270-GY; C9803; J0696; J1940; J7030

== ENCOUNTER 2020-11-20 15:30 | Emergency (ER) | payer MEDICARE, BC ==
[~2020-11-20] VITALS: Ht 167.6 cm; Wt 93.9 kg
[~2020-11-20 15:30] MED LIST changes: +ALBU90OI INH; +ASCO500 PO; +AZIT500 PO; +CEFP200 PO; +DULOXETINE HCL60 M1 PO; +EUTHYROX100 MC1 PO; +FAMO20 PO; +FERSU300 PO; +GILTUSS HONEY118 ML PO; +GLIMEPIRIDE2 MG PO; +Lisinopril2.5 MG PO; +MELA3 PO; +ONDA4ODT MM; +ROBITUSSIN PO; +SYNTHROID100 MC4 PO; +VISBIOME PROBIOTIC PO
[2020-11-20] MEDS ORDERED: FURO20 PO (15:46)
[2020-11-20 17:34] LABS: BASOPHILS ABSOLUTE AUTO 0.03 K/mm3 (0.00-0.23); BASOPHILS PERCENT AUTO 0 % (0-2); EOSINOPHILS ABSOLUTE AUTO 0.27 K/mm3 (0.00-0.68); EOSINOPHILS PERCENT AUTO 4 % (0-6); Hematocrit 30.4 % (33.0-51.0); Hemoglobin 9.7 g/dL (11.5-16.0); IMMATURE GRAN ABSOLUTE AUTO 0.02 K/mm3 (0.00-0.10); IMMATURE GRAN PERCENT AUTO 0 % (0-1); LYMPHOCYTES ABSOLUTE AUTO 1.37 K/mm3 (0.84-5.20); LYMPHOCYTES PERCENT AUTO 19 % (21-46); MONOCYTES ABSOLUTE AUTO 0.47 K/mm3 (0.16-1.47); MONOCYTES PERCENT AUTO 7 % (4-13); Mean Corpuscular HGB 32.7 pg (26.0-34.0); Mean Corpuscular HGB Conc 31.9 g/dL (31.5-36.5); Mean Corpuscular Volume 102 fL (80-100); Mean Platelet Volume 10.6 fL (9.1-12.4); NEUTROPHILS ABSOLUTE AUTO 4.92 K/mm3 (1.96-9.15); NEUTROPHILS PERCENT AUTO 70 % (41-73); Platelet Count 156 K/mm3 (150-400); RDW Coefficient Variation 14.1 % (11.7-14.2); RDW Standard Deviation 51.8 fL (35.1-46.3); Red Blood Cell Count 2.97 M/mm3 (3.80-5.20); White Blood Cell Count 7.08 K/mm3 (4.00-11.30)
[2020-11-20 18:04] LABS: Alanine Aminotransfer (ALT/SGP 13 U/L (12-78); Albumin, Blood 3.2 g/dL (3.4-5.0); Albumin/Globulin Ratio 0.8 (0.8-1.8); Alk Phos 68 U/L (50-136); Anion Gap 9 mmol/L (6-16); Aspartate Aminotrans (AST/SGOT 18 U/L (12-37); Bilirubin, Total 0.3 mg/dL (0.1-1.0); Blood Urea Nitrogen 22 mg/dL (8-24); Bun/Creatinine Ratio 16.9 (12.0-20.0); CO2, Blood 22 mmol/L (21-32); Calcium, Blood 8.6 mg/dL (8.5-10.1); Chloride, Blood 106 mmol/L (98-108); Globulin, Blood 3.9 g/dL (2.2-4.0); Glomerular Filtration Rate 41 (60-); Glucose, Blood 208 mg/dL (70-99); Potassium, Blood 4.1 mmol/L (3.5-5.5); Sodium, Blood 137 mmol/L (136-145); Total Protein, Blood 7.1 g/dL (6.4-8.2); Troponin I <0.015 ng/mL (0.000-0.040)
== END 2020-11-20 20:34 | disposition home or self-care (01) ==
LOC: ER 15:30
PROVIDERS: Emergency Medicine
DX: R07.9 Chest pain, unspecified (principal); I10 Essential (primary) hypertension; I25.2 Old myocardial infarction; E11.9 Type 2 diabetes mellitus without complications; Z79.01 Long term (current) use of anticoagulants; Z79.82 Long term (current) use of aspirin; Z79.84 Long term (current) use of oral hypoglycemic drugs; Z79.899 Other long term (current) drug therapy; Z88.0 Allergy status to penicillin; Z88.1 Allergy status to other antibiotic agents; Z88.5 Allergy status to narcotic agent; Z88.2 Allergy status to sulfonamides; Z88.8 Allergy status to other drugs, medicaments and biological substances; Z95.1 Presence of aortocoronary bypass graft; Z87.891 Personal history of nicotine dependence
CPT/HCPCS: 36415; 80053; 83880; 84484; 85025; 93005; 93010; 99285-25

== ENCOUNTER 2020-12-15 11:04 | Inpatient (IN) | payer MEDICARE, BC ==
[~2020-12-15] VITALS: Ht 167.6 cm; Wt 95.3 kg
[~2020-12-15 11:04] MED LIST changes: -ALBU90OI INH; -ATORVASTATIN CA80 M1 PO; -ELIQUIS5 MG PO; -EUTHYROX100 MC1 PO; -FAMO20 PO; -GLIMEPIRIDE2 MG PO
[2020-12-15 11:54] LABS: BASOPHILS ABSOLUTE AUTO 0.03 K/mm3 (0.00-0.23); BASOPHILS PERCENT AUTO 1 % (0-2); EOSINOPHILS ABSOLUTE AUTO 0.27 K/mm3 (0.00-0.68); EOSINOPHILS PERCENT AUTO 4 % (0-6); Hematocrit 34.8 % (33.0-51.0); Hemoglobin 10.8 g/dL (11.5-16.0); IMMATURE GRAN ABSOLUTE AUTO 0.01 K/mm3 (0.00-0.10); IMMATURE GRAN PERCENT AUTO 0 % (0-1); LYMPHOCYTES PERCENT AUTO 17 % (21-46); MONOCYTES ABSOLUTE AUTO 0.37 K/mm3 (0.16-1.47); MONOCYTES PERCENT AUTO 6 % (4-13); Mean Corpuscular HGB 31.6 pg (26.0-34.0); Mean Corpuscular Volume 102 fL (80-100); Mean Platelet Volume 10.8 fL (9.1-12.4); NEUTROPHILS ABSOLUTE AUTO 4.66 K/mm3 (1.96-9.15); NEUTROPHILS PERCENT AUTO 72 % (41-73); Platelet Count 156 K/mm3 (150-400); RDW Coefficient Variation 14.4 % (11.7-14.2); RDW Standard Deviation 54.3 fL (35.1-46.3); Red Blood Cell Count 3.42 M/mm3 (3.80-5.20); White Blood Cell Count 6.44 K/mm3 (4.00-11.30)
[2020-12-15 12:10] LABS: International Normalized Ratio 1.22; Prothrombin Time Results 12.9 Sec (9.7-11.5)
[2020-12-15 12:15] LABS: Albumin, Blood 3.6 g/dL (3.4-5.0); Albumin/Globulin Ratio 0.9 (0.8-1.8); Bilirubin, Total 0.4 mg/dL (0.1-1.0); Bun/Creatinine Ratio 22.7 (12.0-20.0); Calcium, Blood 8.9 mg/dL (8.5-10.1); Creatinine, Blood 1.5 mg/dL (0.40-1.00); Globulin, Blood 3.9 g/dL (2.2-4.0); Potassium, Blood 4.5 mmol/L (3.5-5.5); Total Protein, Blood 7.5 g/dL (6.4-8.2)
[2020-12-15] MEDS ORDERED: FAMO20 PO (13:59)
[2020-12-15] MEDS ORDERED: FURO20 PO (14:00)
[2020-12-15] MEDS ORDERED: GLIMEPIRIDE2 MG PO (14:01)
[2020-12-15] MEDS ORDERED: OLMESARTAN MEDO20 MG PO (14:01)
[2020-12-15] MEDS ORDERED: ALBU90OI INH (14:02)
[2020-12-15] MEDS ORDERED: AMLODIPINE BESYL5 MG PO (14:03)
[2020-12-15] MEDS ORDERED: ELIQUIS5 MG PO (14:03)
[2020-12-15] MEDS ORDERED: ATORVASTATIN CA80 M1 PO (14:04)
[2020-12-15] MEDS ORDERED: DULO60 PO (14:04)
[2020-12-15] MEDS ORDERED: TRAZ150T57 PO (14:05)
[2020-12-15] MEDS ORDERED: EUTHYROX100 MC1 PO (14:05)
--- NOTE | 2020-12-16 05:06 | NUR ---
SHIFT SUMMARY NO ACUTE CHANGES THIS SHIFT, PT SLEPT T/O SHIFT, WAKING FOR CARE OR TO USE BEDSIDE COMODE THEN RETURNING EASILY TO SLEEP. SLEEPING AT THIS TIME, CALL LIGHT IN REACH WHICH PT USES APPROPIATELY, WILL CONT TO MONITOR UNTIL REPORT GIVEN TO DAY RN.
[2020-12-16 05:41] LABS: BASOPHILS ABSOLUTE AUTO 0.04 K/mm3 (0.00-0.23); BASOPHILS PERCENT AUTO 0 % (0-2); EOSINOPHILS ABSOLUTE AUTO 0.11 K/mm3 (0.00-0.68); EOSINOPHILS PERCENT AUTO 1 % (0-6); Hematocrit 32.6 % (33.0-51.0); Hemoglobin 10.3 g/dL (11.5-16.0); IMMATURE GRAN ABSOLUTE AUTO 0.02 K/mm3 (0.00-0.10); IMMATURE GRAN PERCENT AUTO 0 % (0-1); LYMPHOCYTES ABSOLUTE AUTO 1.08 K/mm3 (0.84-5.20); LYMPHOCYTES PERCENT AUTO 12 % (21-46); MONOCYTES ABSOLUTE AUTO 0.44 K/mm3 (0.16-1.47); MONOCYTES PERCENT AUTO 5 % (4-13); Mean Corpuscular HGB 31.7 pg (26.0-34.0); Mean Corpuscular HGB Conc 31.6 g/dL (31.5-36.5); Mean Corpuscular Volume 100 fL (80-100); Mean Platelet Volume 10.5 fL (9.1-12.4); NEUTROPHILS ABSOLUTE AUTO 7.68 K/mm3 (1.96-9.15); NEUTROPHILS PERCENT AUTO 82 % (41-73); Platelet Count 153 K/mm3 (150-400); RDW Coefficient Variation 14.5 % (11.7-14.2); RDW Standard Deviation 53.3 fL (35.1-46.3); Red Blood Cell Count 3.25 M/mm3 (3.80-5.20); White Blood Cell Count 9.37 K/mm3 (4.00-11.30)
[2020-12-16 06:06] LABS: Albumin, Blood 3.2 g/dL (3.4-5.0); Albumin/Globulin Ratio 0.8 (0.8-1.8); Bilirubin, Total 0.9 mg/dL (0.1-1.0); Calcium, Blood 8.7 mg/dL (8.5-10.1); Creatinine, Blood 1.12 mg/dL (0.40-1.00); Magnesium, Blood 2.2 mg/dL (1.6-2.4); Potassium, Blood 4.4 mmol/L (3.5-5.5); Total Protein, Blood 7.2 g/dL (6.4-8.2)
--- NOTE | 2020-12-16 14:15 | NUR ---
Echocardiogram completed.
--- NOTE | 2020-12-16 18:28 | NUR ---
SHIFT SUMMARY PT AxOx4. PLEASANT AND COOPERATIVE WITH CARE. 1 PERSON ASSIST WITH FWW TO BSC. NOTED SOME MILD L SIDED WEAKNESS AND MILD APRAXIA R/T RECENT CVA. PT HAD PT EVAL AND ECHO DONE TODAY. IN THE ROOM TODAY AND UPDATED ON PLAN OF CARE. PT STATES HER LAST BM WAS 5 DAYS AGO. PRUNE JUICE OFFERED X2. PT DOES NOT WANT TO TAKE LAXATIVES. STATES SHE CAN ALWAYS HAVE A BM FROM EATING PRUNES. APPETITE GOOD. VITALS REVIEWED. PER TAXATION ACCOUNTANT, A FIB HR IN 90-100'S. PT ON 2L O2 WITH SATS IN HIGH 90'S. PT STATES THIS IS HER BASELINE. CURRENTLY RESTING IN BED EATING DINNER. STATES SHE WOULD LIKE TO GO HOME TOMORROW. DENIES ANY NEEDS AT THIS TIME.
[2020-12-17 05:20] LABS: BASOPHILS ABSOLUTE AUTO 0.02 K/mm3 (0.00-0.23); BASOPHILS PERCENT AUTO 0 % (0-2); EOSINOPHILS ABSOLUTE AUTO 0.27 K/mm3 (0.00-0.68); EOSINOPHILS PERCENT AUTO 3 % (0-6); Hematocrit 34.3 % (33.0-51.0); Hemoglobin 10.5 g/dL (11.5-16.0); IMMATURE GRAN ABSOLUTE AUTO 0.02 K/mm3 (0.00-0.10); IMMATURE GRAN PERCENT AUTO 0 % (0-1); LYMPHOCYTES ABSOLUTE AUTO 1.17 K/mm3 (0.84-5.20); LYMPHOCYTES PERCENT AUTO 14 % (21-46); MONOCYTES ABSOLUTE AUTO 0.66 K/mm3 (0.16-1.47); MONOCYTES PERCENT AUTO 8 % (4-13); Mean Corpuscular HGB 31.3 pg (26.0-34.0); Mean Corpuscular HGB Conc 30.6 g/dL (31.5-36.5); Mean Corpuscular Volume 102 fL (80-100); NEUTROPHILS ABSOLUTE AUTO 6.03 K/mm3 (1.96-9.15); NEUTROPHILS PERCENT AUTO 74 % (41-73); Platelet Count 142 K/mm3 (150-400); RDW Coefficient Variation 14.3 % (11.7-14.2); RDW Standard Deviation 54.4 fL (35.1-46.3); Red Blood Cell Count 3.36 M/mm3 (3.80-5.20); White Blood Cell Count 8.17 K/mm3 (4.00-11.30)
[2020-12-17 05:41] LABS: Bun/Creatinine Ratio 19.4 (12.0-20.0); Calcium, Blood 9.1 mg/dL (8.5-10.1); Creatinine, Blood 1.08 mg/dL (0.40-1.00)
--- NOTE | 2020-12-17 08:21 | NUR ---
ARRIVAL TO PCU PT ARRIVED TO PCU 3 AT 0810 ACCOMPANIED BY MEDICAL FLOOR RN AND RESIDENTIAL GREEN BUILDING DESIGNER. BEDSIDE REPORT RECEIVED. VITALS STABLE. PT IN AFIB RATE 100'S. PT DENIES CHEST PAIN, PRESSURE, DIZZINESS. HOWEVER, PT LOOKING AROUND ROOM WITH WIDE EYES, SOME EXPRESSIVE APHASIA NOTED. STRUGGLING TO EXPRESS NEEDS. UNABLE TO TELL ME WHAT IS WRONG, BUT HAS GRIMACED FACIAL EXPRESSION. TAKES SEVERAL TRIES TO GET HER NAME AND THE LOCATION OUT, BUT EVENTUALLY IS ABLE TO DO SO. FOLLOWING COMMANDS, STRENGTH EQUAL BILATERALLY. CALL PLACED TO DR. VÁZQUEZ REGARDING NEURO STATUS. NOTED NEW ORDER FOR CT SCAN. CT TECHNICIANS NOTIFIED AND TO BEDSIDE TO TAKE PATIENT TO CT.
--- NOTE | 2020-12-17 08:31 | NUR ---
PT WAS HAVING CP- DESCRIBED "SHARP LEFT CP, AND CONSTANT OF 9/10." PT ALSO STATED THAT SHE WAS NOT SURE IF CP IS WORSE WHEN BREATHING OR NOT. THIS AM AT [address] VÁZQUEZ BY [facility] SKY. NITRO WAS GIVENX3, ASPIRIN, AND ZOFRAN. VSS. PT WAS ON TELE- AFIB AT 112. PT WAS AOX4 THIS AM. CP WAS 9/10 EVEN AFTER NITROX3 WAS GIVEN; TOOK VS AFTER TAKING NITRO. BP WAS 116/64, SPO2 98 ON 2L OF O2. INITIATED APPLIANCE SALES ASSOCIATE. RESPONDED AT 0740 AND STABILIZED THE PT. PT RECEIVED EKG AND TROP STAT. THIS RN WAS ABOUT TO GIVE THE FENTANYL; HOWEVER PT STATED CP WAS RESOLVED. DR VÁZQUEZ ORDERED TO TRANSFER THE PT TO PCU. REPORT GIVEN TO ASYA ROMAN AT PCU 3.
--- NOTE | 2020-12-17 10:16 | NUR ---
UPDATE PT RETURNED FROM CT, PENDING RESULTS. ORIENTATION UNCHANGED. PT EXPRESSING NEEDS BUT STRUGGLING TO GET ALL OF WORDS OUT. FOLLOWS DIRECTIONS, STRENGTH EQUAL BILATERALLY. PT GIVEN MORNING MEDICATIONS IN [place] AND TOLERATED WELL. ABLE TO DEMONSTRATE USE OF CALL LIGHT. BP ELEVATED ON REPEAT ASSESSMENT, WILL CONTINUE TO MONITOR. HR CONTINUES AFIB 110'S, OCCASIONALLY UP TO 120'S BUT NOT SUSTAINED. PT CONTINUES TO DENY CHEST PAIN/PRESSURE OR DIZZINESS. PT LEFT WITH BED ALARM IN PLACE, CALL LIGHT IN REACH.
--- NOTE | 2020-12-17 13:29 | NUR ---
UPDATE SINCE PREVIOUS NOTE, NEURO STATUS UNCHANGED. PT CONTINUES TO BE FORGETFUL, SETTING OFF BED ALARM REPEATEDLY RATHER THAN USING CALL LIGHT TO EXPRESS NEEDS REGARDLESS OF EDUCATION OF USE. PT STEADY ON FEET WITH ONE PERSON ASSIST AND WALKER TO THE BEDSIDE COMMODE. PT'S DAUGHTER CALLED FOR AN UPDATE. UPDATE PROVIDED AND THEN PT'S DAUGHTER REQUESTED TO SPEAK WITH PATIENT. SETUP ASSIST FOR PATIENT AND DAUGHTER TO TALK ON PHONE IN ROOM. PT LEFT WITH CALL LIGHT IN REACH, BED ALARM IN PLACE.
--- NOTE | 2020-12-17 15:00 | NUR ---
UPDATE DR. VÁZQUEZ REQUESTING CODE STATUS BE CONFIRMED WITH PATIENT AND PT'S DAUGHTER CONSIDERING PATIENT'S AGE AND RISK FACTORS. COMPLETE UPDATE PROVIDED TO FAMILY BASED ON MOST RECENT CONVERSATION WITH DR. VÁZQUEZ REGARDING PATIENT'S STATUS. DAUGHTER TEARFUL. PATIENT CALM. DISCUSSED CODE STATUS WITH PATIENT AND DAUGHTER AND BOTH AGREE TO KEEP PATIENT FULL CODE.
--- NOTE | 2020-12-17 18:33 | NUR ---
SUMMARY SEE PREVIOUS NOTES FOR UPDATES FROM THROUGHOUT SHIFT. NO CHANGES IN NEURO STATUS UPON REASSESSMENTS. VITALS STABLE.
[2020-12-18 04:02] LABS: BASOPHILS ABSOLUTE AUTO 0.01 K/mm3 (0.00-0.23); BASOPHILS PERCENT AUTO 0 % (0-2); EOSINOPHILS PERCENT AUTO 0 % (0-6); Hematocrit 36.7 % (33.0-51.0); Hemoglobin 11.5 g/dL (11.5-16.0); IMMATURE GRAN ABSOLUTE AUTO 0.03 K/mm3 (0.00-0.10); IMMATURE GRAN PERCENT AUTO 0 % (0-1); LYMPHOCYTES ABSOLUTE AUTO 0.53 K/mm3 (0.84-5.20); LYMPHOCYTES PERCENT AUTO 8 % (21-46); MONOCYTES ABSOLUTE AUTO 0.03 K/mm3 (0.16-1.47); MONOCYTES PERCENT AUTO 0 % (4-13); Mean Corpuscular HGB 31.2 pg (26.0-34.0); Mean Corpuscular HGB Conc 31.3 g/dL (31.5-36.5); Mean Corpuscular Volume 100 fL (80-100); Mean Platelet Volume 10.9 fL (9.1-12.4); NEUTROPHILS ABSOLUTE AUTO 6.16 K/mm3 (1.96-9.15); NEUTROPHILS PERCENT AUTO 91 % (41-73); Platelet Count 180 K/mm3 (150-400); RDW Coefficient Variation 13.9 % (11.7-14.2); RDW Standard Deviation 51.4 fL (35.1-46.3); Red Blood Cell Count 3.69 M/mm3 (3.80-5.20); White Blood Cell Count 6.76 K/mm3 (4.00-11.30)
[2020-12-18 04:19] LABS: Bun/Creatinine Ratio 24.1 (12.0-20.0); Calcium, Blood 9.3 mg/dL (8.5-10.1); Creatinine, Blood 1.16 mg/dL (0.40-1.00); Magnesium, Blood 2.2 mg/dL (1.6-2.4); Potassium, Blood 4.7 mmol/L (3.5-5.5)
--- NOTE | 2020-12-18 06:38 | NUR ---
PT ALERT THROUGH MOST OF SHIFT, DIFFICULT TO ASSERTAIN ORIENTATION DUE TO 1 WORD RESPONSES, MOSTLY BEING "YES". HOWEVER WHEN PATIENT PROMPTED TO TALK ABOUT HER FAMILY, SHE IS ABLE TO COMPLETE SENTENCES THAT MAKES SENSE. RESIDENTIAL MEMORY MORE SOLID. NO ACUTE RESP DISTRESS OBSERVED. CPAP ON FROM APPROX 30 MIN DURING NOC SHIFT, PT THEN PULLED OFF. O2 AT 3LPM VIA NC WITH SATS 90-98%. TELE AFIB 110-130. RECEIVED LOPRESSOR IV PRN HR IN 130s. PT DID SAY "NO" TO CHEST PAIN/PRESSURE. C/O HEADACHE EARLIER, RECEIVED MORPHINE IV WITH GOOD RESULTS. PT AWAKE THROUGH MOST OF SHIFT AND VERY "FIDGETY" PULLING AT CORDS, PUSHING BED BUTTONS. REORIENTED OFTEN.
--- NOTE | 2020-12-18 07:32 | NUR ---
ASSUMED CARE: PT RESTING IN BED, WRESTLESS, FIDGETY. AFIB ON TELE AT 114 AT THIS TIME. VERIFIED WITH MONITORING STAFF THAT PT IS BEING OBSERVED ON OVERHEAD CAMERA. BED ALARM IN PLACE. NO ACUTE NEEDS AT THIS TIME.
--- NOTE | 2020-12-18 10:15 | NUR ---
PT'S DAUGHTER AT BEDSIDE. DR ISTRATE ALERTED FOR MEETING. DAUGHTER STATES DR TOLD HER TO CALL WHEN SHE GOT HERE BUT THAT THERE WAS NO SPECIFIC TIME. DAUGHTER WAS MADE AWARE THAT IF THERE IS NO SPECIFIC TIMES SET THEN SHE NEEDS TO COME DURING REGULAR VISITING HOURS AND WE WILL ALERT THE DR THAT SHE IS HERE THEN. FLOOR COVERING PRINTER ASSISTANT STATES IF DAUGHTER LEAVES AFTER MEETING THEN SPOUSE CAN COME DURING NORMAL HOURS.
[2020-12-18] MEDS ORDERED: ASPI325 PO (14:06)
[2020-12-18] MEDS ORDERED: Prednisone10 MG PO (14:07)
[2020-12-18] MEDS ORDERED: Norco 5-325 Ta1 EACH PO (14:08)
[2020-12-18] MEDS ORDERED: ONDA4 PO (14:08)
--- NOTE | 2020-12-18 14:57 | NUR ---
REVIEWED DC INSTRUCTIONS WITH PT'S S.O. INCLUDING MEDS, DC APPOINTMENTS, AND DIET SUGGESTIONS FOR CARDIAC DIET. CNAS ASSISTED WITH DRESSING PT AND ESCORTED OUT VIA WHEEL CHAIR. DENIED FURTHER QUESTIONS OR CONCERNS. IV DC'D WNL.
== END 2020-12-18 14:49 | disposition home health service (06) | DRG 64 ==
LOC: ER 11:04 → MEDS 14:25 → PCU 12-17 08:04
PROVIDERS: Nurse Practitioner Acute Care; Physician Assistant; ADMIT Family Medicine
DX: I63.511 Cerebral infarction due to unspecified occlusion or stenosis of right middle cerebral artery (principal); G93.6 Cerebral edema; I13.0 Hypertensive heart and chronic kidney disease with heart failure and stage 1 through stage 4 chronic kidney disease, or unspecified chronic kidney disease; I50.30 Unspecified diastolic (congestive) heart failure; I16.1 Hypertensive emergency; Z20.822 Contact with and (suspected) exposure to COVID-19; N18.30 Chronic kidney disease, stage 3 unspecified; D63.1 Anemia in chronic kidney disease; K21.9 Gastro-esophageal reflux disease without esophagitis; I48.0 Paroxysmal atrial fibrillation; E03.9 Hypothyroidism, unspecified; Z66 Do not resuscitate; G47.33 Obstructive sleep apnea (adult) (pediatric); E78.5 Hyperlipidemia, unspecified; I25.10 Atherosclerotic heart disease of native coronary artery without angina pectoris; M79.7 Fibromyalgia; D50.9 Iron deficiency anemia, unspecified; I65.29 Occlusion and stenosis of unspecified carotid artery; E66.01 Morbid (severe) obesity due to excess calories; R47.81 Slurred speech; Z79.4 Long term (current) use of insulin; Z95.1 Presence of aortocoronary bypass graft; Z87.891 Personal history of nicotine dependence; Z79.82 Long term (current) use of aspirin
CPT/HCPCS: 36415; 70450; 70496; 70498; 80048; 80053; 82947; 83735; 84484; 85025; 85610; 92610; 93005; 93010; 93308; 94660; 94762; 96374; 96375; 97112; 97116; 97162; 97166; 97530; 99285-25; A9270; J1100; J1200; J2270; J2405; J2550; J7030; Q9967

== ENCOUNTER 2020-12-20 11:52 | Inpatient (IN) | payer MEDICARE, BC ==
[~2020-12-20] VITALS: Ht 170.2 cm; Wt 91.7 kg
[~2020-12-20 11:52] MED LIST changes: +ALBU90OI INH; +AMLODIPINE BESYL5 MG PO; +ASPI325 PO; +ATORVASTATIN CA80 M1 PO; +ELIQUIS5 MG PO; +EUTHYROX100 MC1 PO; +FAMO20 PO; +GLIMEPIRIDE2 MG PO; +Norco 5-325 Ta1 EACH PO; +ONDA4 PO; +Prednisone10 MG PO
[2020-12-20] MEDS ORDERED: PREGABALIN100 MG PO (12:15)
[2020-12-20] MEDS ORDERED: TOPROL XL50 MG PO (12:16)
[2020-12-20 12:21] LABS: BASOPHILS ABSOLUTE AUTO 0.02 K/mm3 (0.00-0.23); BASOPHILS PERCENT AUTO 0 % (0-2); EOSINOPHILS ABSOLUTE AUTO 0.17 K/mm3 (0.00-0.68); EOSINOPHILS PERCENT AUTO 2 % (0-6); Hematocrit 39.7 % (33.0-51.0); Hemoglobin 12.5 g/dL (11.5-16.0); IMMATURE GRAN ABSOLUTE AUTO 0.04 K/mm3 (0.00-0.10); IMMATURE GRAN PERCENT AUTO 0 % (0-1); LYMPHOCYTES ABSOLUTE AUTO 2.45 K/mm3 (0.84-5.20); LYMPHOCYTES PERCENT AUTO 24 % (21-46); MONOCYTES ABSOLUTE AUTO 0.55 K/mm3 (0.16-1.47); MONOCYTES PERCENT AUTO 5 % (4-13); Mean Corpuscular HGB 32.6 pg (26.0-34.0); Mean Corpuscular HGB Conc 31.5 g/dL (31.5-36.5); Mean Corpuscular Volume 103 fL (80-100); Mean Platelet Volume 10.9 fL (9.1-12.4); NEUTROPHILS ABSOLUTE AUTO 7.19 K/mm3 (1.96-9.15); NEUTROPHILS PERCENT AUTO 69 % (41-73); Platelet Count 190 K/mm3 (150-400); RDW Coefficient Variation 14.5 % (11.7-14.2); Red Blood Cell Count 3.84 M/mm3 (3.80-5.20); White Blood Cell Count 10.42 K/mm3 (4.00-11.30)
[2020-12-20 12:49] LABS: Base Excess Venous -0.4 mmol/L; Bicarbonate Venous 24.3 mmol/L (24.0-30.0); PCO2 Venous 36.6 mmHg (38-42); PO2 Venous 75.7 mmHg (38-42); pH Blood Venous 7.43 (7.34-7.37)
[2020-12-20 12:53] LABS: Source, Urine Catheter
[2020-12-20 13:03] LABS: Bilirubin, Urine Neg (Neg); Blood, Urine 1+ (Neg); Glucose Qualitative, Urine Neg (Neg); Ketones, Urine Neg (Neg); Leukocyte Esterase, Urine Neg (Neg); Nitrite, Urine Neg (Neg); Protein, Urine Neg (Neg); Specific Gravity, Urine 1.015 (1.003-1.022); Urobilinogen, Urine NORM (Normal)
[2020-12-20 13:07] LABS: Alanine Aminotransfer (ALT/SGP 18 U/L (12-78); Albumin, Blood 3.9 g/dL (3.4-5.0); Albumin/Globulin Ratio 0.9 (0.8-1.8); Alk Phos 65 U/L (50-136); Anion Gap 8 mmol/L (6-16); Aspartate Aminotrans (AST/SGOT 23 U/L (12-37); Bilirubin, Total 0.6 mg/dL (0.1-1.0); Blood Urea Nitrogen 44 mg/dL (8-24); Bun/Creatinine Ratio 31.9 (12.0-20.0); CO2, Blood 26 mmol/L (21-32); Calcium, Blood 9.3 mg/dL (8.5-10.1); Chloride, Blood 108 mmol/L (98-108); Creatinine, Blood 1.38 mg/dL (0.40-1.00); Globulin, Blood 4.4 g/dL (2.2-4.0); Glomerular Filtration Rate 38 (60-); Glucose, Blood 172 mg/dL (70-99); Potassium, Blood 3.9 mmol/L (3.5-5.5); Sodium, Blood 142 mmol/L (136-145); Total Protein, Blood 8.3 g/dL (6.4-8.2); Troponin I <0.015 ng/mL (0.000-0.040)
[2020-12-20 13:09] LABS: Appearance, Urine Clear (Clear); Color, Urine Yellow (P-Yellow)
[2020-12-20 13:10] LABS: Bacteria Rare /hpf; Red Blood Cells, Urine 0-2 /hpf (0-2); Squamous Epithelial Cells Rare /hpf (Few); White Blood Cells, Urine 0-2 /hpf (0-5)
[2020-12-20 13:49] LABS: Influenza A, PCR Negative (NEGATIVE); Influenza B, PCR Negative (NEGATIVE); Resp Syncytial Virus, PCR Negative (NEGATIVE); SARS-Cov-2 (COVID-19) PCR, MMC Negative (NEGATIVE)
--- NOTE | 2020-12-20 16:40 | NUR ---
Spiritual care note: I was in ED with pt's dtr, Rianna, as pt was being examined/treated. Rianna was crying hysterically, and responded well to director of group counseling program and comfort through touch/hugs. Pt's son, Gregor, arrived a bit later. He was a calming presence to Rianna and was pt's MPOA. Facilitated discussion about Vickie's wishes and QOL these past few months. Both adult children state that they have heard pt say "No heroic measures." Pt is a devout Yazdanism. I placed a rosary in pt's hand and provided prayer. Once physician met with family, they decided to withdraw ventilator and shift focus to comfort. Family expressed gratitude for compassionate care by [facility] staff. Prayer of commendation said, and I encouraged reminising/expressions of gratitude. I followed pt to room on medical floor. She appears comfortable--breaths, HR even. I will remain available.
--- NOTE | 2020-12-20 18:43 | NUR ---
comfort care, family at bed side in recliner expecting to spend the night, pt complained of sore throat/r trac, medicated to families satisfaction, resting quietly, ease/even breathing, rm air, infusing , will continue to monitor and treat until share bsr with noc nurse and pt.
--- NOTE | 2020-12-21 05:20 | NUR ---
evening or night nurse supervisor summary pt able to verbalize needs. medicated for pain once overnight. pt is able to reposition self. family member has been by bedside. comfort care measures provided. scott patent and draining to gravity. currently resting with eyes closed. call light within reach.
--- NOTE | 2020-12-21 10:11 | NUR ---
Comfort Care Visit Pt resting in bed with her eyes closed upon arrival. This RN is accompanied by nursing giovani Parrish. Pt's daughter at bedside. Pt briefly opens her eyes and answers questions regarding comfort. Pt denies pain at this time. Pt appears to clinicaly improved from yesterday. Engaged in therapeutic listening as daughter expresses concerns regarding inability to care for Pt in her current condition. Continued therapeutic listening and answered questions. Discussed the possibility of Pt discharging with hospice. Daughter confirms knowledge of hospice and reports her son work for hospice in [place]. Spoke with Bedside RN Jim and discussed case.
--- NOTE | 2020-12-21 13:52 | NUR ---
FAMILY ASKED IF THEY COULD PROVIDE STRAWBERRY ICECREAM, SAID SINCE SHE IS CC SHE CAN HAVE ANYTHING THAT SHE WANTS THAT IS SAFE, NURSE MONITORED THE EATING OF THE ICECREAM AND AFTERWARDS GAVE A SIP/SWALLOW OF WATER, SWALLOWING DONE BETWEEN EACH SERVING OF ICE CREAME AND AFTER THE WATER, MOUTH CLEAR, NOTHING IN CHEEKS OR BENEATH TONGUE
--- NOTE | 2020-12-21 15:52 | NUR ---
cc pt do not get vitals by default, but prior to giving bp medication pts was taken 162/79
--- NOTE | 2020-12-21 17:36 | NUR ---
Spiritual care note: I met with dtr, Rianna, at bedside. She is grateful that "mom seems to have more time." Pt was awake, but did not engage. Prayer provided. Rianna tells me they plan on taking pt home and she will "try" to be there as much as she can. "I can't live there though." Working Foreman services will remain available.
--- NOTE | 2020-12-21 18:24 | NUR ---
continues to improve, frequent checks and family at bed side, rm air, bed in low position, medicated as prescribed, family states satisfaction with care, will continue to monitor and treat until share bsr with noc nurse, pt and family
--- NOTE | 2020-12-22 04:37 | NUR ---
security shift supervisor summary pt on comfort care. more active tonight and tried to get out of bed a couple of times. ativan and pain meds given. pt states IV hurts whenever it's flushed. IV's are not infiltrated. pt verbalized she does not want another IV. po roxanol ordered and given. currently resting with eyes closed. bed alarm in place. call light within reach.
--- NOTE | 2020-12-22 10:08 | NUR ---
Comfort Care Visit Pt resting in bed with her eyes closed. Pt keeps her eyes closed but does respond to questions with yes and no. Pt indicates yes when asked if pain medication is effective. Daughter Rianna at bedside. Rianna inquires about hospice. Rianna appears hestiant about Pt returning home and family's ability to care for Pt. Answered questions and validated concerns. Offered suggestions and continued listening. Palliative Care will remain available.
--- NOTE | 2020-12-22 18:23 | NUR ---
PT RESTING IN BED WITH AT SIDE. PT MAKES NO COMLAINTS AT THIS TIME. PT WAS ABLE TO SWALLOW HER MEDICATIONS WITH WATER TODAY AND TOLLORATED WELL. PATIENT WAS TURNED Q2. STAFF WILL CONT TO MONITOR FOR COMFORT.
--- NOTE | 2020-12-22 20:38 | NUR ---
COMFORT: PATIENT IS ALERT AND ORIENTED TO SELF. DENIES PAIN AND REQUEST TYV BE TURNED ON. T&P AND CATH CARE DONE. PATIENT DRINKS 120 OF ORANGE JUICE AND TAKES BP MEDICATION WITHOUT DIFFICULTY.
--- NOTE | 2020-12-22 23:10 | NUR ---
COMFORT: PATIENT IS RESTLESS AND MOANING, SAYS YES WHEN ASKED IF PAIN IS PRESENT BUT UNABLE TO SAY WERE THE PAIN IS. PRN ROXANOL WAS GIVEN ALONG WITH T&P AND PO FLUIDS.
--- NOTE | 2020-12-23 00:40 | NUR ---
COMFORT: PATIENT IS RESTING IN BED WITH EYE'S CLOSED, OPENS EYE'S TO VOICE. DENIES ANY PAIN AT THIS TIME. IS AT BEDSIDE.
--- NOTE | 2020-12-23 03:05 | NUR ---
GCOMFORT: PATIENT IS MOANING AND RESTLESS, MORPHINE IS ORDERED Q 6H. DR SARAH IS NOTIFIED AND MORPHINE IS CHANGED TO Q 3H. MORPHINE IS GIVEN.
--- NOTE | 2020-12-23 03:40 | NUR ---
COMFORT: PATIENT IS RESTING WITH EYES CLOSED, DENIES PAIN AT THIS TIME. T&P, MOUTHCARE AND FLIUDS GIVEN. BED ALARM IS ON FOR SAFETY.
--- NOTE | 2020-12-23 03:42 | NUR ---
COMFORT: PATIENT IS RESTING WITH EYE'S CLOSED. NO S/S OF PAIN OR DISCOMFORT.
--- NOTE | 2020-12-23 04:05 | NUR ---
COMFORT: PATIENT IS TANGLED IN GOWNED AND BLANKETS. ASSISSTED WITH REPOSITIONING. PO FLUIDS GIVEN. DENIES PAIN AT THIS TIME.
--- NOTE | 2020-12-23 05:53 | NUR ---
COMFORT: PATIENT IS MOANING AND RESTLESS REPLY'S YES TO PAIN. T&PAND ROXANOL WERE GIVEN. BED ALARM IS ON FOR SAFETY.
--- NOTE | 2020-12-23 06:49 | NUR ---
SHIFT SUMMARY: PATIENT IS A&O TO SELF. TAKING SIPS OF WATER AND PILLS WITHOUT DIFFICULTY. PATIENT IS SCORING 5 ON THE FLACC SCALE FOR PAIN. PRN ROXANOL WAS GIVEN X2 WITH FAIR EFFECT. DR SARAH WAS CALLED FOR CHANGE IN FREQUENCY TO MORPHINE Q3H. PO OXYCODONE WAS GIVEN X1 WITH GOOD EFFECT. PATIENT IS NOW RESTING QUIETLY IN BED. BED ALARM IS ON FOR SAFETY.
--- NOTE | 2020-12-23 09:00 | NUR ---
PT ALERT, NOT RESPONDING TO MUCH MORE THAN YES NO QUEST. DAUGHTER ON ROOM. STATES IS IN PAIN. PT MOANING, MOVING ABOUT BED. LEGS AND ARMS. MED FOR PAIN. STATES IS IN BACK. COMFORT CARE. BERGER CATH DRAINING YELLOW FLUID. ATTENDS CDI. NO IV. PT ABLE TO TAKE SIPS WATER WITH NO CHOCKING OR COUGHING NOTED. BED IN LOW POSITION, CALL LLITE IN REACH, BED ALARM ON FOR SAFETY
--- NOTE | 2020-12-23 16:21 | NUR ---
PT REPORTS PAIN. ALSO CHECKED BP AND IT IS UP SOME. MEDICATED FOR PAIN. PLAN TO RECHECK FOR BP AFTER RESTED. SON WITH PT.
--- NOTE | 2020-12-23 16:27 | NUR ---
PT C/O PAIN SEVERAL TIMES TODAY. MOSTLY BACK PAIN. DAUGHTER AT BEDSIDE THIS AM. SON AT BEDSIDE THIS AFT. PT HAS LIGHT RED BUMPS ON BACK. STATES SOME ITCHY. PT FAMILY FILED NAILS FOR HER TO KEEP FROM SCRATCHING. RESP EASY, UNLABORED TODAY. NO NEW CONCERNS AT THIS TIME. BED IN LOW POSITIOIN, CALL LITE IN REACH, BED ALARM ON FOR SAFETY, SON AT BEDSIDE AT THIS TIME.
--- NOTE | 2020-12-23 19:01 | NUR ---
1800 PT UNCOMFORTABLE, MED FOR PAIN, THEN PLACED ON FOAM EGG CRATE. PT AGREED TO BETTER COMFORT. SON IN ROOM AT BEDSIDE. NO OTHER CONCERNS AT THIS TIME. BED IN LOW POSITION, CALLLITE IN REACH, BED ALARM ON FOR SAFETY
--- NOTE | 2020-12-23 19:03 | NUR ---
SPOKE TO DR VÁZQUEZ. PT UNDER 200 CBG AND IS COMFORT CARE. OKAYED ONLY 1 CBG P DAY. CHANGING TO DAILY PRN ALONG WITH HUMALOG. CONTINUE WITH BLOOD PRESSURES GIVE MEDS FOR THIS FOR COMFORT
--- NOTE | 2020-12-23 19:18 | NUR ---
COMFORT: PATIENT SCPORES A 4 ON FLACC PAIN REASSESSMENT. PATIENT IS RESTLESS AND MOANING, "OH GOG, OH GOD." ATIVAN IS ORDERED IV. CALL PLACED TO POLYSOMNOGRAPHIC TECHNICIAN.
--- NOTE | 2020-12-23 21:13 | NUR ---
COMFORT: PATIENT IS ANXIOUS, ATIVAN IS ORDERED IV. DR JOYA IS NOTIFIED AND ORDER FOR ORAL ATIVAN IS OBTAINED AND MED IS GIVEN WIT T&P, PERSONAL AND BERGER CARE.
--- NOTE | 2020-12-23 22:56 | NUR ---
COMFORT: PATIENT IS RESTING QUIETLY, HAS HAD GOOD EFFECT FROM ATIVAN. RESPIRATIONS ARE EASY AT 16. SON IS AT BEDSIDE AND REQUEST PATIENT NOT NBE TURNED OR PERSONAL CARE DONE AT THIS TIME.
--- NOTE | 2020-12-24 01:13 | NUR ---
COMFORT: PATIENT CONTINUES TO HAVE GOOD EFFECT FROM ATIVAN. RESTING QUIETLY WITH EYES CLOSED. RESPIRATIONS ARE EASY AT 18. PATIENT IS NOT TURNED AND PERSONAL CARE IS NOT GIVEN PER SONS REQUEST NOT TO DISTURB PATIENT WHILE SHE IS RESTING COMFORTABLY. BED ALARM IS ON FOR SAFETY.
--- NOTE | 2020-12-24 02:21 | NUR ---
COMFORT: PATIENT IS RESTLESS,"OH GOD, OH GOD" SHE KEEPS STATING, TOSSING AND TURNING IN BED. PRN ATIVAN IS GIVEN ALONG WITH T &P AND PERSONAL CARE.
--- NOTE | 2020-12-24 04:27 | NUR ---
COMFORT : PATIENT IS SCORING A 6 ON FLACC SCALE. RESTLESS AND MAONING. 10 MG OF MORPHINE IS GIVEN ALONG WITH T&P AND PERSONAL CARE. BED ALARM IS ON FOR SAFETY.
--- NOTE | 2020-12-24 06:08 | NUR ---
COMFORT: PATIENT RESTED QUIETLY FOR APPROX 1 HOUR. NOW SCORES A 5 ON FLACC SCALE. MORPHINE IS GIVEN ALONG WITH T&P AND PERSONAL CARE.
--- NOTE | 2020-12-24 06:49 | NUR ---
SHIFT SUMMARY: PATIENT OPENS EYES TO VOICE AND ANSWERS YES AND NO QUESTIONS OCCASSIONALLY. SCORING 4-6 ON FLACC SCALE AND INCREASED ANXIETY THIS SHIFT HRIS COORDINATOR WAS NOTIFIED AND ORDERS FOR ATIVAN 0.5 MG Q 4H PRN AND MORPHINE 15MG Q1H WERE OBTAINED. PATIENT HAS TAKEN GOWNED OFF AND IS RESTING WITH EYES CLOSED AND IS HAVING FAIR EFFECT FROM LAST DOSE OF MORPHINE. SON IS AT BEDSIDE AND BED ALARM IS ON FOR SAFETY.
--- NOTE | 2020-12-24 08:00 | NUR ---
PT RESTING. RESP ABOUT 12, H/R IRREG, ABOUT 90. PT EYES CLOSED, RELAXED. SON AT BEDSIDE. ATTENDS C&D AT THIS TIME. ADVISED FAMILY TO CALL IF ANY CONCERNS. BED IN LOW POSITIOIN, CALL LITE IN REACH, BED ALARM ON FOR SAFETY
--- NOTE | 2020-12-24 12:00 | NUR ---
PT MOANING, STRUGGLING. UNABLE TO VERBALIZE NEEDS. APPEARS TO BE IN PAIN, LEGS MOVING, ARMS MOVING. REPOSITIONED, DID NOT SEEM TO HELP MUCH. STILL MOANING. ADMIN MORPHINE. DAUGHTER RUBBING BACK. BEGINNING TO RELAX AND CALM. EYES CLOSED AT THIS TIME. BED IN LOW POSITION, CALLLITE IN REACH, BED ALARM ON FOR SAFETY. DAUGHTER AT BEDSIDE.
--- NOTE | 2020-12-24 13:07 | NUR ---
PT RESTING. SHALLOW BREATHING, VARIES ABOUT 6-12 / MIN. DOES AWAKEN TO TOUCH. H/R VARIES ABOUT 80-90. DAUGHTER AT BEDSIDE. ADMITS PT IS CHANGING. BED IN LOW POSITION, CALLLITE IN REACH, BED ALARM ON FOR SAFETY
--- NOTE | 2020-12-24 17:08 | NUR ---
PT MOSTLY NONVERBAL TODAY. DAUGHTER IN UNTIL EARLY AFT. OF 13 YEARS PRESENTLY WITH PT. HE STATES DAUGHTER IS QUITE NERVOUS AND HIGH STRUNG. FEELS MAKES HER SOME NERVOUS ALSO. HE DISCUSSED WITH ME THAT MANY ARE PRAYING FOR HER RECOVERY, THAT GOD CAN DO MIRACLES. STATES WE WILL SEE. PT MORE RELAXED WITH HIS PRESENCE. HE STATES WE ARE MEDICATING ADEQUATELY AT THIS TIME. STATES WILL CALL WHEN NEEDS ANYTHING. PT BREATHING EASY, SHALLOW, EYES CLOSED. WILL FOLLOW. BED IN LOW POSITION, CALL LITE IN REACH, BED ALARM ON FOR SAFETY
--- NOTE | 2020-12-24 19:28 | NUR ---
COMFORT: PATIENT IS RESTING IN BED WITH EYE'S CLOSED IS AT BED SIDE.
--- NOTE | 2020-12-24 20:09 | NUR ---
COMFORT: PATIENT IS RESTLESS,"OH GOD, OH GOD". ATIVAN IS GIVEN. REPOSITIONED, BERGER CARE DONE. BED ALARM IS ON FOR SAFETY.
--- NOTE | 2020-12-25 00:10 | NUR ---
COMFORT: PATIENT IS MOANING AND RESTLESS SCORING 5 ON FLACC SCALE. MORPHINE 10 MG IS GIVEN. EMOTIONAL SUPPORT T&P AND PERSONAL CARE GIVEN.
--- NOTE | 2020-12-25 02:34 | NUR ---
COMFORT: PATIENT HAS HAD GOOD EFFECT FROM MORPHINE AND IS RESTING QUIETLY WITH EYE'S CLOSED. T&P GIVEN. BED ALARM IS ON FOR SAFETY.
--- NOTE | 2020-12-25 04:37 | NUR ---
COMFORT: PATIENT IS RESTING QUIETLY, GOOD EEFCT FROM MORPHINE CONTINUES. T&PAND PERSONAL CARE ARE GIVEN. BED ALARM IS ON FOR SAFETY. AB IS PATENT FOE AN IVAN URINE
--- NOTE | 2020-12-25 05:53 | NUR ---
COMFORT: PATIENT IS MOANING AND RESTLESS, SCORES A 6 ON FLACC SCALE. MORPHINE IS GIVEN WITH T&P PERSONAL AND EMOTIONAL CARE. BED ALARM IS ON.
--- NOTE | 2020-12-25 06:27 | NUR ---
SHIFT SUMMARY: PATIENT OPENS EYESPONATIOUSLY BUT DOES NOT ANSWER QUESTIONS. MOANS IN HER SLEEP AND IS RESTLESS AT TIMES. ABLE TO TURN SELF AND DOES OCCASSIONALY. MORPHINE IS GIVEN FOR S/S OF PAIN AND ATIVAN FOR ANXIETY WITH GOOD EFFECT. BED ALARMK IS ON.
--- NOTE | 2020-12-25 10:56 | NUR ---
Comfort Care Visit Accompanied by registered nursing professor Elyssa. Pt resting in bed with her eyes closed. Pt does not respond to gentle verbal stimuli. Pt appears comfortable with no S/S of distress at this time. Pt's daughter Rianna at bedside. Rianna reports concerns regarding rash on her back. Will consult pharmacy then discuss with MD. Reviewed chart and discussed case with Bedside RN Eva. Eva expresses concerns regarding rash as well. Reviewed comfort medication. Called and consulted with hospital pharmacist regarding long acting pain medictation. Will await a return call. Palliative Care will remain available.
--- NOTE | 2020-12-25 11:27 | NUR ---
Late Entry from previous visit Constulted with hospital pharmacist regarding Fentanyl patch and itchy rash. Fentanyl 25mcg patch for long acting pain management and hyrocortisone 1% cream is recommended. Spoke with Dr Juarez and discussed case. Placed order for Fentanyl 25mcg patch Q 3 days and Hydrocortisone 1% cream 3 times daily PRN for itchiness per V/O from Dr Juarez. Palliative Care will remain available.
--- NOTE | 2020-12-25 16:46 | NUR ---
Spiritual care note: I met with dtrRianna at bedside. She was calm and appreciative of gentle children counselor. We prayed the Rosary together as "this would make mom happy." Pt appears to be sleeping comfortable. Rianna tells me that they plan on returning pt home with hospice tomorrow. Prayer for a peaceful transition. I will remain available.
--- NOTE | 2020-12-26 07:23 | NUR ---
SHIFT SUMMARY COMFORT CARE. OCCASIONALLY OPENS EYES TO VERBAL STIMULI. NONVERBAL. MOANS, GRIMACES & RESTLESS WHEN IN PAIN OR ANXIOUS, MEDICATED 1X c 10MG ROXANOL & 1X c PO ATIVAN PER ORDERS. PT ABLE TO REST COMFORTABLY T/O NIGHT. SON @BEDSIDE T/O NIGHT. TURNED & REPOSITIONED PRN FOR COMFORT. BERGER PATENT & DRAINING. CALL LIGHT IN REACH & FAMILY CALLS FOR PTS NEEDS.
--- NOTE | 2020-12-26 09:15 | NUR ---
Pt resting in bed upon arrival. Pt does not respond verbaly and appears anxious as evidenced by scratching at her face and moaning. Daughter Rianna at bedside and is requesting comfort medication. Daughter reports plan for D/C tomorrow with hospice. Spoke with Bedside RN Kia relayed Pt's discomfort and reviewed comfort medications. Palliative Care will remain available.
--- NOTE | 2020-12-26 15:39 | NUR ---
Met pt. inbed and the spouse in the room, pt. is in comfort care, offered prayers and anointed pt.
--- NOTE | 2020-12-26 17:45 | NUR ---
SHIFT SUMMARY COMFORT CARE PT, RESTING QUIETLY AT START OF SHIFT. FAMILY STAYING IN RM AT BS. DAUGHTER REQUESTING PT TO BE MEDICATED FOR PAIN. ROXANOL GIVEN PER EMAR. PT RESTING QUIETLY AGAIN, BUT DAUGHTER REQUESTING PT TO BE MEDICATED FOR AGITATION; ATIVAN GIVEN PER EMAR. PT REPOSITIONED FOR COMFORT AND STARTED MOANING. PT MEDICATED AGAIN FOR PAIN. PT TO D/C TO HOME TOMORROW ON HOSPICE, PER DAUGHTER. PT WAS TO D/C ON HOSPICE ON FRIDAY, BUT DAUGHTER REPORTED THAT SHE WASN'T READY. PT RESTING QUIETLY AT THIS TIME. DAUGHTER GONE HOME. PT'S SON TO STAY THE NIGHT. DR TAN AND [employer] BOARDS HERE TO [facility] ON PT TODAY. WILL CONTINUE TO MONITOR.
--- NOTE | 2020-12-27 07:05 | NUR ---
SHIFT SUMMARY COMFORT CARE. OPENS EYES TO VERBAL STIMULI. OCCASIONALLY HAS NONVERBAL S/S OF PAIN: MOANING, GRIMACING, RESTLESS-MEDICATED c ROXANOL 4X & ATIVAN 2X FOR COMFORT. TURNED & REPOSITIONED PRN. AB PATENT & DRAINING. PT PLANNED TO GO HOME c FAMILY ON HOSPICE TODAY. SON @BEDSIDE T/O NIGHT & HE USES CALL LIGHT IF PT HAS ANY NEEDS.
--- NOTE | 2020-12-27 09:52 | NUR ---
Pt resting in bed with her eyes closed upon arrival. Pt appears comfortable with no S/S of distress at this time. Pt's son at bedside. Son confirms understanding of home with hospice. No concerns reported at this time. Palliative Care will remain available.
[2020-12-27] MEDS ORDERED: LORA2L PO (10:08)
[2020-12-27] MEDS ORDERED: ATROPINE SULFATE SL (10:08)
[2020-12-27] MEDS ORDERED: MORP20L PO (10:09)
[2020-12-27] MEDS ORDERED: PROM12.5S PR (10:09)
[2020-12-27] MEDS ORDERED: TRANSDERM-SCOP1 EAC1 TOP (10:10)
[2020-12-27] MEDS ORDERED: FENTANYL1 EA10 TOP (10:10)
[2020-12-27] MEDS ORDERED: HYDROCORTISON28.4 G2 TOP (10:11)
[2020-12-27] MEDS ORDERED: ACET120S PR (10:12)
--- NOTE | 2020-12-27 10:17 | NUR ---
PT MEDICATED PER EMAR. PT JUST HAD A BEDBATH. FAMILY AT BEDSIDE
--- NOTE | 2020-12-27 11:17 | NUR ---
SHIFT SUMMARRY PT DISCHARGED TO HOME WITH HOSPICE. PT HAD A BED BATH AND MEDICATED FOR PAIN PRIOR DISCHARGE. PT DC VIA TRANSPORT. CONFIRMED WITH [employer] THE SUPPLIES THAT PT NEEDED WHEN SHE GETS HOME. SON IS AT BEDSIDE. NO APPARENT DISTRESS DURING DISCHARGE. EDUCATED ABOUT HOSPICE.
== END 2020-12-27 11:09 | disposition hospice, home (50) | DRG 951 ==
LOC: ER 11:52 → MEDS 14:55 → ENPENDDIS 12-25 10:12 → MEDS 12-27 11:09
PROVIDERS: Emergency Medicine; ADMIT Family Medicine
DX: Z51.5 Encounter for palliative care (principal); I63.9 Cerebral infarction, unspecified; G93.6 Cerebral edema; J96.91 Respiratory failure, unspecified with hypoxia; R40.20 Unspecified coma; I13.0 Hypertensive heart and chronic kidney disease with heart failure and stage 1 through stage 4 chronic kidney disease, or unspecified chronic kidney disease; I50.32 Chronic diastolic (congestive) heart failure; I42.9 Cardiomyopathy, unspecified; I48.92 Unspecified atrial flutter; I16.1 Hypertensive emergency; Z20.822 Contact with and (suspected) exposure to COVID-19; E66.9 Obesity, unspecified; N18.30 Chronic kidney disease, stage 3 unspecified; E11.22 Type 2 diabetes mellitus with diabetic chronic kidney disease; I25.10 Atherosclerotic heart disease of native coronary artery without angina pectoris; I48.0 Paroxysmal atrial fibrillation; Z66 Do not resuscitate; K21.9 Gastro-esophageal reflux disease without esophagitis; M79.7 Fibromyalgia; G47.33 Obstructive sleep apnea (adult) (pediatric); G43.909 Migraine, unspecified, not intractable, without status migrainosus; K57.90 Diverticulosis of intestine, part unspecified, without perforation or abscess without bleeding; E78.5 Hyperlipidemia, unspecified; E03.9 Hypothyroidism, unspecified; D50.9 Iron deficiency anemia, unspecified; Z95.1 Presence of aortocoronary bypass graft; Z79.01 Long term (current) use of anticoagulants; Z79.84 Long term (current) use of oral hypoglycemic drugs; Z79.82 Long term (current) use of aspirin; Z79.891 Long term (current) use of opiate analgesic; Z79.52 Long term (current) use of systemic steroids; Z79.899 Other long term (current) drug therapy; Z68.31 Body mass index [BMI] 31.0-31.9, adult
CPT/HCPCS: 0241U; 31720; 36415; 51702; 70450; 71045; 80053; 81001; 82803; 82947; 83880; 84484; 85025; 93005; 93010; 94002; 96374-59; 96375-59; 99285-25; A9270; J2060; J2704; J3010